=== PATIENT | male | born 1970 | race Caucasian/White ===

== ENCOUNTER 2018-06-09 16:01 | Observation (INO) ==
[2018-06-09] MEDS ORDERED: Aspirin 81 MG TAB.CHEW PO ONE (16:17)
[2018-06-09 16:34] LABS: Basophils # 0.1 K/mcL (0.0-0.2); Eosinophils # 0.3 K/mcL (0.0-0.6); Eosinophils % 4.7 %; Hematocrit 44.8 % (37.5-50.1); Hemoglobin 15.4 g/dL (12.9-16.9); Immature Granulocytes % 0.2 % (0-4); Lymphocytes # 2.3 K/mcL (0.6-4.6); Lymphocytes % 38.1 %; Mean Corpuscular HGB Conc 34.4 g/dL (31.6-35.5); Mean Corpuscular Hemoglobin 33.9 pg (28.0-33.3); Mean Corpuscular Volume 98.7 fL (83.0-100.0); Mean Platelet Volume 11.6 fL (9.4-12.4); Monocytes # 0.8 K/mcL (0.0-1.3); Neutrophils # 2.5 K/mcL (1.6-8.9); Red Blood Count 4.54 M/mcL (4.19-5.50); Red Cell Distribution Width 11.2 % (11.5-14.5)
[2018-06-09 16:52] LABS: Platelet Count 41 K/mcL (140-400)
[2018-06-09 16:53] LABS: Platelet Estimate Marked Decrease (Normal)
--- NOTE | 2018-06-09 16:59 | Emergency Department Note ---
Disposition Clinical Impression: Chest pain Qualifiers: Chest pain type: unspecified Qualified Code(s): R07.9 - Chest pain, unspecified Disposition: Admitted As Inpatient Condition: Good Referrals: Darin Mendosa MD [Primary Care Provider] - Forms: ED Satisfaction Letter Time of Disposition: 19:19 General Adult HPI - General Chief complaint: ED Chest Pain Stated complaint: CP Time Seen by Provider: 06/09/18 16:02 Source: patient Mode of arrival: ambulatory Limitations: no limitations Nursing Notes Reviewed: Yes Vital Signs Reviewed: Yes - History of Present Illness HPI Narrative: Patient is a 48-year-old male with a past medical history of hypertension as well as one pack per day smoking presenting to the emergency room in for evaluation of chest pain has been going on for 3 days and worsening. Patient describes as an elephant sitting on his chest that is a 10/10. Associated with dyspnea as well as one episode of nausea. Denies any history of pain similar to this in the past. Pain Scale: 10 - Related Data Home Medications Medication Instructions Recorded Confirmed Lisinopril [Zestril] 5 mg PO QAM 01/25/15 02/26/18 Escitalopram [Lexapro] 10 mg PO DAILY 02/26/18 02/26/18 Omeprazole [PriLOSEC] 40 mg PO DAILY 02/26/18 02/26/18 Allergies Allergy/AdvReac Type Severity Reaction Status Date / Time No Known Allergies Allergy Verified 02/26/18 08:41 All systems ED: reviewed and negative except as stated. Review of Systems: As Per HPI Constitutional: Denies: fever, chills Cardiovascular: Reports: chest pain. Denies: palpitations, dyspnea on exertion, edema, syncope Respiratory: Reports: dyspnea. Denies: cough, wheezes, hemoptysis, sputum production Gastrointestinal: Reports: nausea. Denies: abdominal pain, vomiting, diarrhea Past Medical History - Past Medical History Attestation: Yes The following information was validated with the patient. Medical history: Reports: cirrhosis, GERD, hepatitis, hyperlipidemia, hypertension, other Surgical history: Reports: orthopedic, other Psychiatric history: Reports: anxiety, depression - Social History Smoking Status: Current every day smoker Smokeless Tobacco Status: No Alcohol use: Reports: heavy Drug use: Reports: none Physical Exam CONSTITUTIONAL: Well-appearing; well-nourished; A&O X 3, in no apparent distress HEAD: Normocephalic; atraumatic EYES: PERRL, no scleral icterus NOSE: The nose is normal in appearance without rhinorrhea NECK: No JVD or distended neck veins RESP: Normal chest excursion with respiration; breath sounds clear and equal bilaterally; no wheezes, rhonchi, or rales CARD: Regular rhythm, without murmurs, rub or gallop ABD: Non-distended; non-tender, soft, without rigidity, rebound or guarding,no pulsatile mass CHEST: No pain with palpation SKIN: Normal for age and race; warm and dry without diaphoresis ; no apparent lesions EXTREMITIES: Pulses are 2 plus and equal times 4 extremities, no peripheral edema or calf muscle pain - General General appearance: alert Course Course Narrative: Patient was even a full dose of aspirin as well as dose of nitroglycerin. He will be worked up for his chest pain. Patient has a moderate heart score and will be coming into the hospital regardless of results of labs and imaging. - Reevaluation(s) Reevaluation #1: Patient's labs are unremarkable and his troponin was negative. Chest x-ray was negative as well. I discussed the patient's case with the hospitalist on-call and he agreed to accept the patient. Time: 19:15 Vital Signs Temperature 98.1 F 06/09/18 16:09 Pulse Rate 48 06/09/18 16:09 Respiratory Rate 17 06/09/18 16:09 Blood Pressure 168/99 06/09/18 16:09 O2 Sat by Pulse Oximetry 99 06/09/18 16:09 Temperature 98.1 F 06/09/18 16:24 Pulse Rate 60 06/09/18 18:10 Respiratory Rate 14 06/09/18 18:10 Blood Pressure 137/96 06/09/18 18:10 O2 Sat by Pulse Oximetry 96 06/09/18 18:10 Oxygen Delivery Oxygen Delivery Room Air Medical Decision Making - Medical Records Medical records reviewed: Yes I reviewed the patient's medical records. - Lab Data Lab results reviewed: Yes I reviewed the patient's lab results. Result diagrams: 06/09/18 16:08 06/09/18 17:25 Lab Results 06/09/18 06/09/18 06/09/18 Range/Units 16:08 16:08 16:57 WBC 6.0 (4.3-11.1) K/mcL RBC 4.54 (4.19-5.50) M/mcL Hgb 15.4 (12.9-16.9) g/dL Hct 44.8 (37.5-50.1) % MCV 98.7 (83.0-100.0) fL MCH 33.9 H (28.0-33.3) pg MCHC 34.4 (31.6-35.5) g/dL RDW 11.2 L (11.5-14.5) % Plt Count 41 L (140-400) K/mcL MPV 11.6 (9.4-12.4) fL Immature Gran % 0.2 (0-4) % Seg Neutrophils % 42.0 % Lymphocytes % 38.1 % Monocytes % 13.0 % Eosinophils % 4.7 % Basophils % 2.0 % Neutrophils # 2.5 (1.6-8.9) K/mcL Lymphocytes # 2.3 (0.6-4.6) K/mcL Monocytes # 0.8 (0.0-1.3) K/mcL Eosinophils # 0.3 (0.0-0.6) K/mcL Basophils # 0.1 (0.0-0.2) K/mcL Platelet Estimate Marked Decrease L (Normal) Sodium Cancelled Potassium Cancelled Chloride Cancelled Carbon Dioxide Cancelled BUN Cancelled Creatinine Cancelled Est GFR ( Amer) Cancelled Est GFR (Non-Af Amer) Cancelled BUN/Creatinine Ratio Cancelled Glucose Cancelled Calculated Osmolality Cancelled Calcium Cancelled Troponin I < 0.03 (< 0.04) ng/mL Specimen Rejected Hemolyzed 06/09/18 Range/Units 17:25 WBC (4.3-11.1) K/mcL RBC (4.19-5.50) M/mcL Hgb (12.9-16.9) g/dL Hct (37.5-50.1) % MCV (83.0-100.0) fL MCH (28.0-33.3) pg MCHC (31.6-35.5) g/dL RDW (11.5-14.5) % Plt Count (140-400) K/mcL MPV (9.4-12.4) fL Immature Gran % (0-4) % Seg Neutrophils % % Lymphocytes % % Monocytes % % Eosinophils % % Basophils % % Neutrophils # (1.6-8.9) K/mcL Lymphocytes # (0.6-4.6) K/mcL Monocytes # (0.0-1.3) K/mcL Eosinophils # (0.0-0.6) K/mcL Basophils # (0.0-0.2) K/mcL Platelet Estimate (Normal) Sodium 138 Potassium 5.1 Chloride 105 Carbon Dioxide 27 BUN 7 Creatinine 0.84 Est GFR ( Amer) > 60 Est GFR (Non-Af Amer) > 60 BUN/Creatinine Ratio 8 Glucose 114 H Calculated Osmolality 285 Calcium 9.8 Troponin I (< 0.04) ng/mL Specimen Rejected - Radiology Data Radiology results reviewed: Yes I reviewed the patient's radiology results. Chest X-Ray 06/09/18 16:17 IMPRESSION: Normal chest x-ray D/ / Tye Bolanos MD / Tye Bolanos MD Interpreting Provider: Tye Bolanos MD - EKG Data EKG #1 EKG attestation: Yes I reviewed and interpreted this EKG. EKG results narrative: EKG done at 16:08 shows sinus rhythm at a rate of 52 bpm. Normal [place]. No signs of ST elevation, depression or q-waves. The sinus bradycardia is new compared to prior ecg on 11/29/17
[2018-06-09] MEDS: Nitroglycerin 0.4 MG TAB.SUBL SL PRN ×2 (17:36→18:34)
[2018-06-09 17:54] LABS: BUN/Creatinine Ratio 8 (6-26); Blood Urea Nitrogen 7 mg/dL (6-20); Calcium 9.8 mg/dL (8.6-10.3); Carbon Dioxide 27 mEq/L (23-29); Chloride 105 mEq/L (98-107); Glucose 114 mg/dL (70-105); Osmolality,Calculated 285 (280-300); Potassium 5.1 mEq/L (3.5-5.1); Sodium 138 mEq/L (136-145); eGFR For Non-African Americans > 60 (> 60)
[2018-06-09] MEDS ORDERED: *HR* Morphine 2 MG/ML SYRINGE IVP ONE ×2 (18:31→21:08)
--- NOTE | 2018-06-09 18:34 | Emergency Department Note ---
Disposition Clinical Impression: Chest pain Qualifiers: Chest pain type: unspecified Qualified Code(s): R07.9 - Chest pain, unspecified Disposition: Admitted As Inpatient Condition: Good Referrals: Darin Mendosa MD [Primary Care Provider] - Forms: ED Satisfaction Letter General Adult HPI - General Chief complaint: ED Chest Pain Stated complaint: CP Time Seen by Provider: 06/09/18 16:02 Source: patient Mode of arrival: ambulatory Limitations: no limitations - History of Present Illness Pain Scale: 4 - Related Data Home Medications Medication Instructions Recorded Confirmed Lisinopril [Zestril] 5 mg PO QAM 01/25/15 02/26/18 Escitalopram [Lexapro] 10 mg PO DAILY 02/26/18 02/26/18 Omeprazole [PriLOSEC] 40 mg PO DAILY 02/26/18 02/26/18 Allergies Allergy/AdvReac Type Severity Reaction Status Date / Time No Known Allergies Allergy Verified 02/26/18 08:41 Constitutional: Denies: fever, chills Cardiovascular: Reports: chest pain. Denies: palpitations, dyspnea on exertion, edema, syncope Respiratory: Reports: dyspnea. Denies: cough, wheezes, hemoptysis, sputum production Gastrointestinal: Reports: nausea. Denies: abdominal pain, vomiting, diarrhea Past Medical History - Past Medical History Medical history: Reports: cirrhosis, GERD, hepatitis, hyperlipidemia, hypertension, other Surgical history: Reports: orthopedic, other Psychiatric history: Reports: anxiety, depression - Social History Smoking Status: Current every day smoker Smokeless Tobacco Status: No Alcohol use: Reports: heavy Drug use: Reports: none Physical Exam - General Limitations: no limitations General appearance: alert Course Vital Signs Temperature 98.1 F 06/09/18 16:09 Pulse Rate 48 06/09/18 16:09 Respiratory Rate 17 06/09/18 16:09 Blood Pressure 168/99 06/09/18 16:09 O2 Sat by Pulse Oximetry 99 06/09/18 16:09 Temperature 98.1 F 06/09/18 16:24 Pulse Rate 60 06/09/18 18:10 Respiratory Rate 14 06/09/18 18:10 Blood Pressure 137/96 06/09/18 18:10 O2 Sat by Pulse Oximetry 96 06/09/18 18:10 Oxygen Delivery Oxygen Delivery Room Air Medical Decision Making - Lab Data Result diagrams: 06/09/18 16:08 01/06/19 17:25 Lab Results 06/09/18 06/09/18 06/09/18 Range/Units 16:08 16:08 16:57 WBC 6.0 (4.3-11.1) K/mcL RBC 4.54 (4.19-5.50) M/mcL Hgb 15.4 (12.9-16.9) g/dL Hct 44.8 (37.5-50.1) % MCV 98.7 (83.0-100.0) fL MCH 33.9 H (28.0-33.3) pg MCHC 34.4 (31.6-35.5) g/dL RDW 11.2 L (11.5-14.5) % Plt Count 41 L (140-400) K/mcL MPV 11.6 (9.4-12.4) fL Immature Gran % 0.2 (0-4) % Seg Neutrophils % 42.0 % Lymphocytes % 38.1 % Monocytes % 13.0 % Eosinophils % 4.7 % Basophils % 2.0 % Neutrophils # 2.5 (1.6-8.9) K/mcL Lymphocytes # 2.3 (0.6-4.6) K/mcL Monocytes # 0.8 (0.0-1.3) K/mcL Eosinophils # 0.3 (0.0-0.6) K/mcL Basophils # 0.1 (0.0-0.2) K/mcL Platelet Estimate Marked Decrease L (Normal) Sodium Cancelled Potassium Cancelled Chloride Cancelled Carbon Dioxide Cancelled BUN Cancelled Creatinine Cancelled Est GFR ( Amer) Cancelled Est GFR (Non-Af Amer) Cancelled BUN/Creatinine Ratio Cancelled Glucose Cancelled Calculated Osmolality Cancelled Calcium Cancelled Troponin I < 0.03 (< 0.04) ng/mL Specimen Rejected Hemolyzed 06/09/18 Range/Units 17:25 WBC (4.3-11.1) K/mcL RBC (4.19-5.50) M/mcL Hgb (12.9-16.9) g/dL Hct (37.5-50.1) % MCV (83.0-100.0) fL MCH (28.0-33.3) pg MCHC (31.6-35.5) g/dL RDW (11.5-14.5) % Plt Count (140-400) K/mcL MPV (9.4-12.4) fL Immature Gran % (0-4) % Seg Neutrophils % % Lymphocytes % % Monocytes % % Eosinophils % % Basophils % % Neutrophils # (1.6-8.9) K/mcL Lymphocytes # (0.6-4.6) K/mcL Monocytes # (0.0-1.3) K/mcL Eosinophils # (0.0-0.6) K/mcL Basophils # (0.0-0.2) K/mcL Platelet Estimate (Normal) Sodium 138 Potassium 5.1 Chloride 105 Carbon Dioxide 27 BUN 7 Creatinine 0.84 Est GFR ( Amer) > 60 Est GFR (Non-Af Amer) > 60 BUN/Creatinine Ratio 8 Glucose 114 H Calculated Osmolality 285 Calcium 9.8 Troponin I (< 0.04) ng/mL Specimen Rejected Attestation Statement - Attestation Attestation: I examined this patient and my medical decision-making was reviewed with the Resident Physician. I agree with the documented findings, disposition and treatment plan as described except to the extent set forth below. 48 year old male presents to the ED with complaints of chest pain and appaers to be very suspicios for ACS. Juan Jose chest pain has improved with nitro therpay although it has returned and we will try to resolve with morphine. Juan Jose has agreed to admission andhas a negative troponin and no new ischemic changes on ekg today.
[2018-06-09] MEDS ORDERED: Naloxone 0.4 MG/ML INJ IVP PRN (20:27)
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
[2018-06-09] MEDS ORDERED: Isovue-370 500 ML INFUS..BTL IV ONE (21:58)
[2018-06-09] MEDS: traMADol 50 MG TABLET PO PRN (22:15)
[2018-06-09] MEDS ORDERED: methylPREDNISolone 125 MG/2 ML VIAL IVP ONE (23:47)
[2018-06-10] MEDS: Ipratropium/Albuterol Neb 3 ML IH PRN ×2 (00:01→11:33)
[2018-06-10] MEDS: Ondansetron 4 MG/2 ML VIAL IVP PRN ×2 (02:04→20:02)
[2018-06-10] MEDS: traMADol 50 MG TABLET PO PRN ×4 (03:34→20:02)
[2018-06-10] MEDS ORDERED: Acetaminophen 325 MG TABLET PO PRN (04:35)
[2018-06-10 05:25] LABS: Hematocrit 43.8 % (37.5-50.1); Hemoglobin 15.3 g/dL (12.9-16.9); Lymphocytes # 0.5 K/mcL (0.6-4.6); Mean Corpuscular HGB Conc 34.9 g/dL (31.6-35.5); Mean Corpuscular Hemoglobin 33.7 pg (28.0-33.3); Mean Corpuscular Volume 96.5 fL (83.0-100.0); Red Blood Count 4.54 M/mcL (4.19-5.50); Red Cell Distribution Width 11.1 % (11.5-14.5)
[2018-06-10 05:26] LABS: Platelet Count 37 K/mcL (140-400)
[2018-06-10 05:34] LABS: INR 1.4; Prothrombin Time 15.3 Seconds (9.4-12.1)
[2018-06-10 05:45] LABS: Neutrophils # 5.2 K/mcL (1.6-8.9); Platelet Estimate Decreased (Normal); Troponin I < 0.03 ng/mL (< 0.04)
[2018-06-10 05:47] LABS: Alanine Aminotransferase 52 Units/L (7-52); Albumin 4.1 g/dL (3.5-5.7); Albumin/Globulin Ratio 0.9 (1.1-2.2); Alkaline Phosphatase 102 Units/L (34-104); Aspartate Amino Transferase 106 Units/L (13-39); BUN/Creatinine Ratio 15 (6-26); Bilirubin,Total 1.5 mg/dL (0.3-1.0); Blood Urea Nitrogen 10 mg/dL (6-20); Calcium 9.7 mg/dL (8.6-10.3); Carbon Dioxide 21 mEq/L (23-29); Chloride 103 mEq/L (98-107); Chol/HDL Ratio 2.6 (0-4.9); Cholesterol 158 mg/dL (< 200); Globulin 4.6 g/dL (2.4-3.5); Glucose 114 mg/dL (70-105); HDL Cholesterol 60 mg/dL (40-59); LDL Cholesterol,Calculated 89 mg/dL (0-99); Magnesium 1.6 mg/dL (1.6-2.6); Osmolality,Calculated 280 (280-300); Potassium 4.4 mEq/L (3.5-5.1); Sodium 135 mEq/L (136-145); Total Protein 8.7 g/dL (6.4-8.9); Triglycerides 45 mg/dL (< 150); eGFR For Non-African Americans > 60 (> 60)
[2018-06-10 05:58] LABS: Thyroid Stimulating Hormone 0.766 mcIU/mL (0.340-5.600)
[2018-06-10] MEDS ORDERED: *HR* Heparin 5,000 UNIT/ML VIAL SQ SCH (06:00)
--- NOTE | 2018-06-10 10:19 | Cardiology Consult Note ---
<Sherly Chavez - Last Filed: 06/10/18 10:15> Date of Encounter: 06/10/18 Time of Encounter: 10:00 Assessment and Plan (1) Chest pain Current Visit: Yes Status: Acute Patient presents with atypical chest pain symptoms--reproducible upon exam. Likely musculoskeletal in etiology. Troponin negative x3. No ST/T wave abnormalities noted on ECG. Recommend conservative medical therapy given hx of severe liver dysfunction with thrombocytopenia, PLT 37. Further cardiac testing would be contraindicated at this time. No asa or statin. It does not appear HR will tolerate BB. Echo pending, please call with significant abnormality. Continue further work-up for hematemesis--discussed with primary service. Qualifiers: Chest pain type: chest pain on breathing Qualified Code(s): R07.1 - Chest pain on breathing; R07.81 - Pleurodynia (2) Alcohol abuse Current Visit: Yes Status: Acute Chronic, reports started at age 14. Follows with GI as outpatient, has EGD scheduled for 06/12/18. Reports multiple episodes of hematemesis this AM--discussed with primary service who will further evaluate. (3) Thrombocytopenia Current Visit: Yes Status: Acute Appears to be chronic, secondary to liver cirrhosis. Hx of heavy ETOH (has cut back to 3-4 beers/day) and hep C--undergoing treatment. Proceeding with cardiac intervention (stress, LHC) would be contraindicated at this time due to severe thrombocytopenia, PLT 37. Continue conservative medication therapy. Avoid statin/asa. (4) Sinus bradycardia Current Visit: Yes Status: Acute Patient appears to have baseline sinus bradycardia--asymptomatic. Avg HR=59 SR/SB. No significant pause, block, or arrhythmia noted. Avoid AV maribel blocking agents. No further cardiac testing recommended at this time. Discussion w patient/family: The assessment and plan as outlined above was discussed with the patient and/or family members who expressed understanding and agreement. All questions were answered. Thank you for involving us in the care of your patient. Please call with any questions. The patient will be discussed and reviewed with Dr. Matos; changes to be made accordingly. History of Present Illness Consult date: 06/10/18 Requesting physician: Arlet Kwok Consult reason: Chest pain Chief complaint: Chest pain History of present illness: Mr. Sow is a 48 year old male with PMHx significant of heavy/chronic ETOH abuse, hepatitis C, thrombocytopenia, tobacco use, and HTN who presented to the ED with complaints of midsternal chest pain. He reports that discomfort started over the past few days and has been nearly constant. Associated symptoms include fatigue, poor appetite, and hematemesis. Chest pain is worsened with movement and cough. Chest pain is noted to be reproducible upon exam. Reports he manually pushed a vehicle a fair distance in order to change out a battery, since pushing the car, chest pain has continued to worsen. Patient follows with GI d/t liver dysfunction and thrombocytopenia/hepatitis C. He unfortunately continues to drink, but reports he has cut down to 3-4 beers per day. 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 Past Med Surg Social Fam HX - Past Medical History Attestation: Yes The following information was validated with the patient. Source: patient Medical history: cirrhosis, GERD, hepatitis, hyperlipidemia, hypertension, other Additional medical history: headaches Psychiatric history: anxiety, depression - Past Surgical History Surgical History: orthopedic, other Additional surgical history: ankles 2000 - Social History Smoking Status: Current every day smoker Packs per day: 0.5-1 Smokeless Tobacco Status: No Alcohol use: heavy Drug use: none - Family History Grandfather Hx Family Cardiac Disorders: Yes (DC) Mother Family Member Ethnicity: Non- Living Status: Still Living Hx Family Cardiac Disorders: No Hx Family Respiratory Disorders: No Hx Family Cancer: Yes Hx Family GI Disorders: No Hx Family Endocrine Disorder: No Hx Family Neuromuscular Disorders: No Hx Family Neurologic Disorders: No Hx Family HEENT Disorders: No Hx Family Autoimmune Disorders: No Father Living Status: Still Living Medications and Allergies Escitalopram [Lexapro] 5 mg PO DAILY 02/26/18 [History] Omeprazole [PriLOSEC] 40 mg PO DAILY 02/26/18 [History] Cyanocobalamin (Vitamin B-12) [Vitamin B12] 1,000 mcg PO DAILY 06/10/18 [History] Meloxicam 15 mg PO DAILY PRN 06/10/18 [History] Nadolol 20 mg PO DAILY 06/10/18 [History] Rifaximin [Xifaxan] 550 mg PO BID 06/10/18 [History] Thiamine HCl [Vitamin B-1] 100 mg PO DAILY 06/10/18 [History] Tizanidine HCl 2 mg PO DAILY 06/10/18 [History] Allergy/AdvReac Type Severity Reaction Status Date / Time No Known Allergies Allergy Verified 06/10/18 14:23 All Systems Review: The remainder of the systems were reviewed and are negative - Cardiovascular Cardiovascular: as per HPI Physical Examination Vital Signs, Last 4 Hours Temp Pulse Resp BP Pulse Ox 06/10/18 08:19 97 06/10/18 07:55 98.9 F 57 18 161/90 97 General: Conversant, No Apparent Distress HEENT: Normocephaly, Mucus Membranes Moist, Other (healing brittni-orbital (L>R) ecchymosis) Cardiac: Reg Rate and Rhythm, Normal S1 and S2 Lungs: Other (Expiratory wheezes noted throughout) Neuro: Alert and responsive Abdomen: Soft Skin: No rashes noted on visualized skin Musculoskeletal: No Chest Wall Tenderness Extremities: No Edema, Normal Pulses Results 06/10/18 04:19 06/10/18 04:19 Lab Results 06/09/18 06/09/18 06/09/18 16:08 16:08 17:25 WBC 6.0 Hgb 15.4 Hct 44.8 Plt Count 41 L INR Sodium Cancelled 138 Potassium Cancelled 5.1 Chloride Cancelled 105 Carbon Dioxide Cancelled 27 BUN Cancelled 7 Creatinine Cancelled 0.84 Glucose Cancelled 114 H Calcium Cancelled 9.8 Magnesium Total Bilirubin AST ALT Alkaline Phosphatase Troponin I < 0.03 TSH 06/09/18 06/10/18 06/10/18 21:52 04:19 04:19 WBC 5.6 Hgb 15.3 Hct 43.8 Plt Count 37 L INR 1.4 Sodium Potassium Chloride Carbon Dioxide BUN Creatinine Glucose Calcium Magnesium Total Bilirubin AST ALT Alkaline Phosphatase Troponin I < 0.03 TSH 06/10/18 04:19 WBC Hgb Hct Plt Count INR Sodium 135 L Potassium 4.4 Chloride 103 Carbon Dioxide 21 L BUN 10 Creatinine 0.65 L Glucose 114 H Calcium 9.7 Magnesium 1.6 Total Bilirubin 1.5 H AST 106 H ALT 52 Alkaline Phosphatase 102 Troponin I < 0.03 TSH 0.766 Active Medications Acetaminophen (Tylenol) 650 mg PO Q6H PRN PRN Reason: Fever Stop: 12/10/18 04:36 Albuterol/Ipratropium (Duoneb) 3 ml IH [id number] PRN PRN Reason: Shortness Of Breath/Wheezing Stop: 12/09/18 23:49 Last Admin: 06/10/18 00:01 Dose: 3 ml Heparin Sodium (Porcine) (Heparin) 5,000 unit SQ Q8HCO KRISTI Stop: 12/10/18 06:01 Last Admin: 06/10/18 05:14 Dose: Not Given Lisinopril (Zestril) 5 mg PO QAM KRISTI; Protocol Stop: 12/09/18 21:31 Last Admin: 06/10/18 08:11 Dose: 5 mg Naloxone HCl (Narcan) 0.4 mg IVP Q2MIN PRN PRN Reason: SEE COMMENTS Stop: 12/09/18 20:28 Nitroglycerin (Nitroglycerin) 0.4 mg SL Q5MIN PRN PRN Reason: Chest Pain Stop: 12/09/18 17:00 Last Admin: 06/09/18 18:34 Dose: 0.4 mg Ondansetron HCl (Zofran) 4 mg IVP Q8HR PRN; Protocol PRN Reason: Nausea And Vomiting Stop: 12/10/18 01:54 Last Admin: 06/10/18 02:04 Dose: 4 mg Tramadol HCl (Ultram) 50 mg PO Q4H PRN PRN Reason: Analgesia Stop: 12/09/18 22:00 Last Admin: 06/10/18 08:11 Dose: 50 mg - Imaging and Cardiology Echo: pending Other Results: 12 hour tele: avg HR=59 SR - EKG Interpretation EKG results cardiology: personally reviewed Consult Discharge Plan - Plan Referrals: Darin Mendosa MD [Primary Care Provider] - <Luis Matos A - Last Filed: 06/10/18 16:51> Date of Encounter: 06/10/18 - Attending Attestation I have personally performed a face to face evaluation on this patient. I have reviewed and agree with the documented findings and care plan as documented by the FURNACE CHARGING MACHINE OPERATOR. History and Exam by me shows: 48-year-old male with chronic liver disease and thrombocytopenia, presenting with atypical chest pain. Examination reveals reproducible midsternal chest pain. Recommend supportive care. Patient counseled on smoking and alcohol cessation in order to improve his platelet counts. Thanks, Luis Matos MD Assessment and Plan Discussion w patient/family: The assessment and plan as outlined above was discussed with the patient and/or family members who expressed understanding and agreement. All questions were answered. Thank you for involving us in the care of your patient. Please call with any questions. History of Present Illness History of present illness: Mr. Sow is a 48 year old male All Systems Review: The remainder of the systems were reviewed and are negative Physical Examination Vital Signs, Last 4 Hours Temp Pulse Resp BP Pulse Ox 06/10/18 15:15 51 14 156/81 96 06/10/18 14:45 69 14 132/73 97 06/10/18 14:15 70 14 151/77 98 06/10/18 13:13 98.3 F 55 16 144/90 96 Results 06/10/18 12:41 06/10/18 04:19 Lab Results 06/09/18 06/09/18 06/09/18 16:08 16:08 17:25 WBC 6.0 Hgb 15.4 Hct 44.8 Plt Count 41 L INR Sodium Cancelled 138 Potassium Cancelled 5.1 Chloride Cancelled 105 Carbon Dioxide Cancelled 27 BUN Cancelled 7 Creatinine Cancelled 0.84 Glucose Cancelled 114 H Calcium Cancelled 9.8 Magnesium Total Bilirubin AST ALT Alkaline Phosphatase Troponin I < 0.03 TSH 06/09/18 06/10/18 06/10/18 21:52 04:19 04:19 WBC 5.6 Hgb 15.3 Hct 43.8 Plt Count 37 L INR 1.4 Sodium Potassium Chloride Carbon Dioxide BUN Creatinine Glucose Calcium Magnesium Total Bilirubin AST ALT Alkaline Phosphatase Troponin I < 0.03 TSH 06/10/18 06/10/18 04:19 12:41 WBC Hgb 14.7 Hct 42.7 Plt Count INR Sodium 135 L Potassium 4.4 Chloride 103 Carbon Dioxide 21 L BUN 10 Creatinine 0.65 L Glucose 114 H Calcium 9.7 Magnesium 1.6 Total Bilirubin 1.5 H AST 106 H ALT 52 Alkaline Phosphatase 102 Troponin I < 0.03 TSH 0.766
[2018-06-10 11:52] LABS: Amphetamine Screen,Urine Negative ng/mL (Cutoff=1000); Barbiturate Screen,Urine Negative ng/mL (Cutoff=200); Benzodiazepines Screen,Urine Negative ng/mL (Cutoff=200); Cannabinoid Screen,Urine Negative ng/mL (Cutoff = 50); Cocaine Screen,Urine Negative ng/mL (Cutoff= 300); Opiate Screen,Urine Positive ng/mL (Cutoff=300); Phencyclidine Screen,Urine Negative ng/mL (Cutoff=25)
[2018-06-10] MEDS: Pantoprazole 40 MG VIAL IVP SCH ×2 (12:27→17:43)
[2018-06-10 13:14] LABS: Hematocrit 42.7 % (37.5-50.1); Hemoglobin 14.7 g/dL (12.9-16.9)
[2018-06-10] MEDS: 0.9 % Sodium Chloride 1,000 ML IVC SCH (13:19)
--- NOTE | 2018-06-10 13:33 | Anesthesia Evaluation PreOp ---
Date of Encounter: 06/10/18 Time of Encounter: 13:31 - Past History Planned Operation: EGD Cardiac History: Denies any Significant Hx (egd Cardiac History: HTN Pulmonary History: Smoker, Asthma Other Medical History: Hepatic (hep c), GERD Anesthesia History: No Prior Anesthetic Complications Alcohol Use: heavy Drug use: none), HTN Pulmonary History: Smoker, Asthma BRAZER ELECTRONIC History: Denies Any Significant HX Other Medical History: Denies Any Significant HX, Hepatic (Hep C) Anesthesia History: No Prior Anesthetic Complications, Past Anesthesia (EGD) Alcohol Use: heavy Drug use: none Medications and Allergies RX: Lisinopril [Zestril] 5 mg PO QAM 01/25/15 [History] Escitalopram [Lexapro] 10 mg PO DAILY 02/26/18 [History] Omeprazole [PriLOSEC] 40 mg PO DAILY 02/26/18 [History] Allergy/AdvReac Type Severity Reaction Status Date / Time No Known Allergies Allergy Verified 02/26/18 08:41 - Meds/Allergy Pre-op Review Medications Reviewed: Yes Allergies Reviewed: Yes Beta Blockers on Current Med List: No Anesthesia Results - Labs 06/10/18 12:41 06/10/18 04:19 Anesthesia Exam Vital Signs/O2 Sat, Most Current Temp Pulse Resp BP Pulse Ox 98.3 F 55 16 144/90 96 06/10/18 13:13 06/10/18 13:13 06/10/18 13:13 06/10/18 13:13 06/10/18 13:13 NPO (# of Hours): > 8 Hrs Pain Scale: 0 Pain Scale Used: Numeric (1 - 10) - HEENT Pupil (Motor): Pupils equal, EOMI Mallampati: I Teeth: Normal Oral Opening: Greater than 3 - BRAZER ELECTRONIC LOC: Oriented BRAZER ELECTRONIC Motor: Normal RUE, Normal LUE, Normal RLE, Normal LLE, Normal Face BRAZER ELECTRONIC Sensory: Normal: RUE, LUE, RLE, LLE, Face - Cardiac Rhythm: Regular Murmur: None JVD: No Carotid Bruit: No - Pulmonary Breath Sounds: bilateral Clear Respiratory Effort: Symmetrical Anesthesia Assess/Plan ASA Score: 3 Level of consciousness: Cooperative Anesthetic Plan: MAC Autologous Blood: Yes Monitoring Plan: Standard Monitors Recovery Plan: PACU
[2018-06-10] MEDS ORDERED: Tetracaine/Benzocaine/Butamben 1 SPRAY AEROSOL MM ONE (13:43)
[2018-06-10] MEDS ORDERED: *HR* Propofol 200 MG/20 ML VIAL IVP ONE ×2 (13:50→13:53)
--- NOTE | 2018-06-10 13:52 | Gastroenterology Consult Note ---
<Amanda Simms - Last Filed: 06/10/18 13:50> Date of Encounter: 06/10/18 Time of Encounter: 12:15 - Assessment and plan (1) Chest pain Current Visit: Yes Status: Acute Assessment and plan: Pt presents with chest pain. Troponins were negative. Will proceed with EGD to rule out GI cause of CP including esophagitis, and gastritis. (2) Alcohol abuse Current Visit: Yes Status: Acute Assessment and plan: Pt is being followed by Dr Loaiza for cirrhosis and hep C, he is advised to abstain from alcohol. (3) Thrombocytopenia Current Visit: Yes Status: Acute Assessment and plan: Likely due to cirrhosis, and alcohol abuse, will monitor. (4) Chest pain Current Visit: Yes Status: Acute Qualifiers: Chest pain type: chest pain on breathing Qualified Code(s): R07.1 - Chest pain on breathing; R07.81 - Pleurodynia (5) Cirrhosis of liver Current Visit: Yes Status: Acute Assessment and plan: followed by Dr Loaiza as an outpatient, Meld NA 14 Child bonilla Class A, DF 16.2 Qualifiers: Hepatic cirrhosis type: alcoholic cirrhosis - Time Spent With Patient Total time spent is greater than 50% in coordination of care (as documented) at patient's floor/unit and/or counseling patient: GI History of Present Illness - Data of Consult Patient: known to practice within the last 3 years Consult date: 06/10/18 Requesting Physician: Rizwana Leslie MD - Consult Narrative Reason for consult: hemetemesis History of present illness: Mr. Sow is a 48 year old male with a past medical history of hepatitis C, hypertension, alcohol use, anxiety and thrombocytopenia who presented to the ED with a chief complaint of chest pain. Patient states that he has been having constant chest pain for the past 3 days which is gotten progressively worse. He describes the chest pain as pressure-like, substernal, constant, and radiating to his spine. Pain is aggravated with deep inspiration and as such has been taking short shallow breaths. Patient also notes pain is worse when he sits up. Patient states that when he got off work this morning, he states the pain was unbearable. He contacted his daughter who works at a hospital who advised him to come in. Pain was reproducible with palpation of his anterior chest wall. Patient states that he was pushing his girlfriend's car out onto the street last Sunday and felt that he may have strained something. Patient reports no dizziness or lightheadedness. Patient reports an episode of nausea and vomiting this morning after having a beer; patient also reports some hemetemsis. He drinks 3-4 cans of beers a day after he gets off work and has been doing so since he was 14. Upon arrival patient was mildly hypertensive with systolic blood pressure in the 160s. He was noted to be slightly bradycardic in the 40s to 60s. Labs are relatively unremarkable. Negative troponin. EKG was relatively unremarkable. CTA was ordered which showed no evidence of PE or dissection. He was given a loading dose of aspirin and admitted to the floor. Meld NA 14 Child bonilla Class A, DF 16.2 NSAIDS: denies Anticoagulants: denies EGD: 06/19 gastritis Colonoscopy: denies Past Med Surg Social Fam HX - Past Medical History Medical history: cirrhosis, GERD, hepatitis, hyperlipidemia, hypertension, other Additional medical history: headaches Psychiatric history: anxiety, depression - Past Surgical History Surgical History: orthopedic, other Additional surgical history: ankles 2000 - Social History Smoking Status: Current every day smoker Packs per day: 0.5-1 Smokeless Tobacco Status: No Alcohol use: heavy Drug use: none - Family History Grandfather Hx Family Cardiac Disorders: Yes (ID) Mother Family Member Ethnicity: Non- Living Status: Still Living Hx Family Cardiac Disorders: No Hx Family Respiratory Disorders: No Hx Family Cancer: Yes Hx Family GI Disorders: No Hx Family Endocrine Disorder: No Hx Family Neuromuscular Disorders: No Hx Family Neurologic Disorders: No Hx Family HEENT Disorders: No Hx Family Autoimmune Disorders: No Father Living Status: Still Living Review of Systems: GI: as per CHITIMACHA GENERAL: denies fever, has some chills EYES: denies yellow discoloration ENT: denies pain with swallowing or difficulty swallowing CARDIO: see hpi RESP: Shortness of breath with exertion : denies change in color of urine NEURO: denies any weakness HEME: Denies any bruising MS: denies joint pain, joint swelling or back pain. DERM: denies rash or itching PSYCH: Denies history of anxiety or depression - Constitutional Vitals: Temp Pulse Resp BP Pulse Ox 98.3 F 55 16 144/90 96 06/10/18 13:13 06/10/18 13:13 06/10/18 13:13 06/10/18 13:13 06/10/18 13:13 Exam: CONSTITUTIONAL:alert, no acute distress.HEAD:normocephalic.EYES:mild jaundice.NECK:no obvious swelling.HEART:regular rate and rhythm, no murmurs.LUNGS:bilateral good air entry.ABDOMEN:non distended, soft, tender, no masses palpable, organomegaly.RECTAL EXAM:Deferred.EXTREMITIES:no clubbing, cyanosis or edema.SKIN:no stigmata of chronic liver disease.NEUROLOGIC:no obvious focal defect. Results - Labs CBC & Chem 7: 06/10/18 12:41 06/10/18 04:19 Labs: Last Result Calcium 9.7 mg/dL (8.6-10.3) 06/10/18 04:19 Troponin I < 0.03 ng/mL (< 0.04) 06/10/18 04:19 Triglycerides 45 mg/dL (< 150) 06/10/18 04:19 Urine Opiates Screen Positive ng/mL (Flaylu=007) H 06/10/18 11:23 Entire Visit Hgb 14.7 g/dL (12.9-16.9) 06/10/18 12:41 Hct 42.7 % (37.5-50.1) 06/10/18 12:41 PT 15.3 Seconds (9.4-12.1) H 06/10/18 04:19 Total Bilirubin 1.5 mg/dL (0.3-1.0) H 06/10/18 04:19 AST 106 Units/L (13-39) H 06/10/18 04:19 ALT 52 Units/L (7-52) 06/10/18 04:19 - ABG ABG results: PT/INR, D-dimer PT 15.3 Seconds (9.4-12.1) H 06/10/18 04:19 - Impressions Impressions Chest X-Ray 06/09/18 16:17 IMPRESSION: Normal chest x-ray D/ / Tye Bolanos MD / Tye Bolanos MD Interpreting Provider: Tye Bolanos MD Chest CTA 06/09/18 21:58 IMPRESSION: No evidence of pulmonary embolism or acute pulmonary abnormality. Mild paraseptal emphysema. Central airway inflammation is presumably smoking-related, although acute bronchitis could be present in the appropriate context. No consolidative airspace disease. Hepatic steatosis with suspected portosystemic collaterals, similar to prior exam. D/ / Emmanuel Elliott / Emmanuel Elliott Interpreting Provider: Emmanuel Elliott Consult Discharge Plan - Plan Referrals: Darin Mendosa MD [Primary Care Provider] - <Laura Oneil - Last Filed: 06/10/18 17:15> Date of Encounter: 06/10/18 Time of Encounter: 12:30 - Time Spent With Patient Total time spent is greater than 50% in coordination of care (as documented) at patient's floor/unit and/or counseling patient: GI History of Present Illness - Data of Consult Requesting Physician: Rizwana Leslie MD - Consult Narrative History of present illness: Mr. Sow is a 48 year old male - Constitutional Vitals: Temp Pulse Resp BP Pulse Ox 98.3 F 51 14 156/81 96 06/10/18 13:13 06/10/18 15:15 06/10/18 15:15 06/10/18 15:15 06/10/18 15:15 Results - Labs CBC & Chem 7: 06/10/18 12:41 06/10/18 04:19 Labs: Last Result Calcium 9.7 mg/dL (8.6-10.3) 06/10/18 04:19 Troponin I < 0.03 ng/mL (< 0.04) 06/10/18 04:19 Triglycerides 45 mg/dL (< 150) 06/10/18 04:19 Urine Opiates Screen Positive ng/mL (Sranti=322) H 06/10/18 11:23 Entire Visit Hgb 14.7 g/dL (12.9-16.9) 06/10/18 12:41 Hct 42.7 % (37.5-50.1) 06/10/18 12:41 PT 15.3 Seconds (9.4-12.1) H 06/10/18 04:19 Total Bilirubin 1.5 mg/dL (0.3-1.0) H 06/10/18 04:19 AST 106 Units/L (13-39) H 06/10/18 04:19 ALT 52 Units/L (7-52) 06/10/18 04:19 - ABG ABG results: PT/INR, D-dimer PT 15.3 Seconds (9.4-12.1) H 06/10/18 04:19 - Impressions Impressions Chest CTA 06/09/18 21:58 IMPRESSION: No evidence of pulmonary embolism or acute pulmonary abnormality. Mild paraseptal emphysema. Central airway inflammation is presumably smoking-related, although acute bronchitis could be present in the appropriate context. No consolidative airspace disease. Hepatic steatosis with suspected portosystemic collaterals, similar to prior exam. D/ / Emmanuel Elliott / Emmanuel Elliott Interpreting Provider: Emmanuel Elliott - Attending Attestation I have personally performed a face to face evaluation on this patient. I have reviewed and agree with the care plan. History and Exam by me shows: Patient seen patient with alcoholic cirrhosis now admitted because of hematemesis. He is complaining of lower chest pain. On examination does has l ower chest wall tenderness on palpation and abdomen is soft. Assessment: Patient with alcoholic cirrhosis with the meld sodium score of 14 and the DF of only 16, janette has severe thrombocytopenia. Recommendation: EGD to rule out upper GI causes for his hematemesis. Strongly advised against drinking
[2018-06-10] MEDS ORDERED: *HR* LORazepam 2 MG/ML VIAL IVP PRN ×4 (14:43→15:16)
[2018-06-10 14:45] LABS: Estimated Average Glucose 103 mg/dl; Hemoglobin A1C 5.2 %
--- NOTE | 2018-06-10 14:47 | Internal Med Progress Note ---
Hospitalist Progress Note - Encounter Date of Encounter: 06/10/18 Time of Encounter: 14:41 - Subjective Interval History: Mr. Sow is a 48 year old male with a past medical history of hepatitis C, hypertension, alcohol use, anxiety and thrombocytopenia who presented to the ED with a chief complaint of chest pain and hematemesis. He did have reproducible chest wall tenderness which is better now. He did have an episode of hemetemesis here. He went for EGD this morning which showed non bleeding varices and gastric ulcer. - Exam Vitals: Temp Pulse Resp BP Pulse Ox 98.3 F 70 14 151/77 98 06/10/18 13:13 06/10/18 14:15 06/10/18 14:15 06/10/18 14:15 06/10/18 14:15 Exam: Gen: Alert, awake, Oriented to time,place and person Chest: Diminished breath sounds B/L, No wheezing, No crackles, No rales Heart: S1S2+ RRR No murmurs Abd: Soft, NT, BS +, No organomegaly Ext: No edema, pulses are palpable, No calf tenderness Neuro : Benign findings Skin: No rash. - Assessment and Plan (1) Chest pain Current Visit: Yes Status: Acute Assessment and Plan: atypical chest pain most likely musculo skeletal no acute ischemic changes on EKG serial troponin were negative will follow-up on Echo (2) Thrombocytopenia Current Visit: Yes Status: Acute Assessment and Plan: Chronic thrombocytopenia due to alcohol induced cirrhosis of the liver continue close monitoring.. today @ 37 avoid anticoagulation medication (3) Sinus bradycardia Current Visit: Yes Status: Acute Assessment and Plan: improved symptomatic 2 D Echo - p appreciate cardiology recommendations (4) Hematemesis Current Visit: Yes Status: Acute Assessment and Plan: s/p EGD showed garde 1 esophageal varices and portal gatsropathy full liquid diet PPI BID + Carafate out pt f/u with GI (5) Alcohol dependence Current Visit: Yes Status: Acute Assessment and Plan: last alcohol 5 days ago on CIWA protocol Ativan PRN Thiamine and folic acid (6) DVT prophylaxis Current Visit: Yes Status: Acute Assessment and Plan: SCD's only - Time Spent with Patient Total time spent is greater than 50% in coordination of care (as documented) at patient's floor/unit and/or counseling patient: Internal Medicine: Result - Labs CBC & Chem 7: 06/10/18 12:41 06/10/18 04:19 Labs: Short CBC 06/09/18 06/10/18 06/10/18 Range/Units 16:08 04:19 12:41 WBC 6.0 5.6 (4.3-11.1) K/mcL Hgb 15.4 15.3 14.7 (12.9-16.9) g/dL Hct 44.8 43.8 42.7 (37.5-50.1) % Plt Count 41 L 37 L (140-400) K/mcL Neutrophils # 2.5 5.2 (1.6-8.9) K/mcL BMP 06/09/18 06/09/18 06/10/18 16:08 17:25 04:19 Sodium Cancelled 138 135 L Potassium Cancelled 5.1 4.4 Chloride Cancelled 105 103 Carbon Dioxide Cancelled 27 21 L BUN Cancelled 7 10 Creatinine Cancelled 0.84 0.65 L Glucose Cancelled 114 H 114 H Calcium Cancelled 9.8 9.7 Cardiac Enzymes 06/09/18 06/09/18 06/10/18 Range/Units 16:08 21:52 04:19 Troponin I < 0.03 < 0.03 < 0.03 (< 0.04) ng/mL Liver Function 06/10/18 Range/Units 04:19 Total Bilirubin 1.5 H (0.3-1.0) mg/dL AST 106 H (13-39) Units/L ALT 52 (7-52) Units/L Alkaline Phosphatase 102 (34-104) Units/L Albumin 4.1 (3.5-5.7) g/dL - ABG Interpretation ABG results: PT/INR, D-dimer PT 15.3 Seconds (9.4-12.1) H 06/10/18 04:19 - Impressions Impressions Chest X-Ray 06/09/18 16:17 IMPRESSION: Normal chest x-ray D/ / Tye Bolanos MD / Tye Bolanos MD Interpreting Provider: Tye Bolanos MD Chest CTA 06/09/18 21:58 IMPRESSION: No evidence of pulmonary embolism or acute pulmonary abnormality. Mild paraseptal emphysema. Central airway inflammation is presumably smoking-related, although acute bronchitis could be present in the appropriate context. No consolidative airspace disease. Hepatic steatosis with suspected portosystemic collaterals, similar to prior exam. D/ / Emmanuel Elliott / Emmanuel Elliott Interpreting Provider: Emmanuel Elliott Consult Discharge Plan - Plan Referrals: Darin Mendosa MD [Primary Care Provider] - (1) Chest pain Qualifiers: Chest pain type: chest pain on breathing Qualified Code(s): R07.1 - Chest pain on breathing; R07.81 - Pleurodynia
--- NOTE | 2018-06-10 15:10 | Event Note ---
Date of Encounter: 06/10/18 Time of Encounter: 15:10 - Cardiology Event Note Echo pending, discussed with Dr. Matos, cardiology signoff, reconsult as needed, follow up with PCP. Please call with any concerns on echo.
--- NOTE | 2018-06-10 15:13 | Electrocardiograph Report ---
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
--- NOTE | 2018-06-10 15:19 | Electrocardiograph Report ---
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
[2018-06-11] MEDS: Pantoprazole 40 MG VIAL IVP SCH (05:51)
[2018-06-11] MEDS: traMADol 50 MG TABLET PO PRN (05:55)
[2018-06-11 07:28] LABS: Mean Corpuscular Volume 97.6 fL (83.0-100.0); Red Cell Distribution Width 11.1 % (11.5-14.5)
[2018-06-11 07:30] LABS: Basophils # 0.1 K/mcL (0.0-0.2); Basophils % 0.7 %; Eosinophils # 0.1 K/mcL (0.0-0.6); Eosinophils % 0.7 %; Hematocrit 41.2 % (37.5-50.1); Hemoglobin 14.1 g/dL (12.9-16.9); Immature Granulocytes % 0.4 % (0-4); Immature Platelets 14.9 % (1.1-6.1); Lymphocytes # 2.9 K/mcL (0.6-4.6); Lymphocytes % 29.8 %; Mean Corpuscular HGB Conc 34.2 g/dL (31.6-35.5); Mean Corpuscular Hemoglobin 33.4 pg (28.0-33.3); Mean Platelet Volume 13.4 fL (9.4-12.4); Monocytes % 9.8 %; Red Blood Count 4.22 M/mcL (4.19-5.50); Segmented Neutrophils % 58.6 %
[2018-06-11 07:45] LABS: Neutrophils # 5.7 K/mcL (1.6-8.9); Platelet Count 32 K/mcL (140-400)
[2018-06-11 07:50] LABS: Alanine Aminotransferase 40 Units/L (7-52); Albumin 3.7 g/dL (3.5-5.7); Albumin/Globulin Ratio 0.9 (1.1-2.2); Alkaline Phosphatase 82 Units/L (34-104); Aspartate Amino Transferase 68 Units/L (13-39); BUN/Creatinine Ratio 25 (6-26); Bilirubin,Total 1.8 mg/dL (0.3-1.0); Blood Urea Nitrogen 18 mg/dL (6-20); Calcium 9.4 mg/dL (8.6-10.3); Carbon Dioxide 29 mEq/L (23-29); Chloride 99 mEq/L (98-107); Globulin 4.1 g/dL (2.4-3.5); Glucose 109 mg/dL (70-105); Osmolality,Calculated 278 (280-300); Potassium 3.6 mEq/L (3.5-5.1); Sodium 133 mEq/L (136-145); Total Protein 7.8 g/dL (6.4-8.9); eGFR For Non-African Americans > 60 (> 60)
[2018-06-11 07:58] VITALS: BP 126/76
[2018-06-11] MEDS ORDERED: Thiamine (B-1) 100 MG TABLET PO SCH (09:00)
[2018-06-11] MEDS ORDERED: Folic Acid 1 MG TABLET PO SCH (09:00)
[2018-06-11] MEDS: 0.9 % Sodium Chloride 1,000 ML IVC SCH (09:19)
--- NOTE | 2018-06-11 11:07 | Discharge Summary ---
- NOTES TO OUTPATIENT PROVIDER Notes to Outpatient Provider: Follow up with PCP in 3-5 days. Follow-up with the Fouzia Oneil in 1-2 weeks. Please quit drinking alcohol. Please go for lab work in 3 days and follow up with PCP for test results Orders not resulted at time of discharge: Pending orders 06/10/18 11:23 Urine tox screen [Drug Screen, Urine] [UCHEM] Routine Date of Encounter: 06/11/18 Time of Encounter: 11:05 - Discharge Diagnosis (1) Chest pain Priority: Primary Status: Acute Qualifiers: Chest pain type: chest pain on breathing Qualified Code(s): R07.1 - Chest pain on breathing; R07.81 - Pleurodynia (2) Thrombocytopenia Priority: Secondary Status: Acute (3) Sinus bradycardia Priority: Secondary Status: Acute (4) Hematemesis Priority: Secondary Status: Acute Qualifiers: Nausea presence: unspecified Qualified Code(s): K92.0 - Hematemesis (5) Esophageal varices in alcoholic cirrhosis Priority: Secondary Status: Acute (6) Portal hypertensive gastropathy Priority: Secondary Status: Acute (7) Cirrhosis of liver Priority: Secondary Status: Acute Qualifiers: Hepatic cirrhosis type: alcoholic cirrhosis Ascites presence: without ascites Qualified Code(s): K70.30 - Alcoholic cirrhosis of liver without ascites (8) DVT prophylaxis Priority: Secondary Status: Acute (9) Alcohol dependence Priority: Secondary Status: Acute Qualifiers: Substance use status: in withdrawal Complication of substance-induced condition: with unspecified complication Qualified Code(s): F10.239 - Alcohol dependence with withdrawal, unspecified Hospital course: Mr. Sow is a 48 year old male with a past medical history of hepatitis C, hypertension, alcohol use, anxiety and thrombocytopenia who presented to the ED with a chief complaint of chest pain and hematemesis. He did have reproducible chest wall tenderness which is better now. He did have an episode of hemetemesis here. He went for EGD which showed non bleeding esophageal varices and portal hypertensive gastropathy. Started him on PPI b.i.d. and liquid carafate. Patient is tolerating liquid / soft diet well. His chest pain seems to be musculoskeletal related pain. His echocardiogram did not show any septal/wall motion abnormalities. Patient still have thrombocytopenia due to alcoholic cirrhosis of liver. I recommended the patient to have follow-up lab work CBC, CMP in 3 days. I also counseled the patient to quit drinking alcohol and smoking. - Time Spent with Patient Total time spent providing and/or coordinating discharge services: - Discharge Medications Prescriptions: Folic Acid 1 mg PO DAILY #30 tablet Omeprazole [PriLOSEC] 40 mg PO BID #60 capsule. Sucralfate [Carafate] 1 gm PO QIDAC #1200 ml Home Medications: Escitalopram [Lexapro] 5 mg PO DAILY 02/26/18 [History] Cyanocobalamin (Vitamin B-12) [Vitamin B12] 1,000 mcg PO DAILY 06/10/18 [History] Rifaximin [Xifaxan] 550 mg PO BID 06/10/18 [History] Thiamine HCl [Vitamin B-1] 100 mg PO DAILY 06/10/18 [History] Tizanidine HCl 2 mg PO DAILY 06/10/18 [History] Albuterol Sulfate [Proair Respiclick] 2 puff IH Q6H PRN #1 [email or web address] 06/11/18 [Rx] Budesonide [Pulmicort Flexhaler 90mcg] 90 mcg IH BID #1 [email or web address] 06/11/18 [Rx] Folic Acid 1 mg PO DAILY #30 tablet 06/11/18 [Rx] Omeprazole [PriLOSEC] 40 mg PO BID #60 capsule. 06/11/18 [Rx] Sucralfate [Carafate] 1 gm PO QIDAC #1200 ml 06/11/18 [Rx] Allergies/Adverse Reactions: Allergy/AdvReac Type Severity Reaction Status Date / Time No Known Allergies Allergy Verified 06/10/18 14:23 Date of admission: 06/09/18 19:55 Primary care physician: Darin Mendosa MD Consults: 06/10/18 04:33 Consult to Cardiology [CONS] Routine Comment: Consulting Provider: Cardiology Sharda Reason for Consult: Patient presents with chest pain and sinus bradycardia. Call Completed: No 06/10/18 11:31 Consult to Gastroenterology [CONS] Routine Consulting Provider: Gastroenterology Sharda Reason for Consult: hematemesis Time Notified: 11:31 Call Completed: Yes 06/10/18 14:43 Consult to Foster Care Case Manager [CONS] Routine Reason for SW Consult: Alcohol dependence - Constitutional Vitals: Temp Pulse Resp BP Pulse Ox 98.7 F 57 14 126/76 97 06/11/18 04:58 06/11/18 04:58 06/11/18 04:58 06/11/18 07:55 06/11/18 08:02 General appearance: Present: cooperative, A&O X 3, no acute distress, answers questions appropriately Exam: Gen: Alert, awake, Oriented to time,place and person Chest: Diminished breath sounds B/L, mild wheezing, No crackles, No rales Heart: S1S2+ RRR No murmurs Abd: Soft, NT, BS +, No organomegaly Ext: No edema, pulses are palpable, No calf tenderness Neuro : Benign findings Skin: No rash. - Patient Status Disposition: Home, Self-Care Condition: Good Overall status at discharge: patient is back to baseline - Ambulatory Orders Ambulatory Orders: Complete Blood Count [HEME] Time Frame: 3 Days, Facility: [facility], Location: Lab Comprehensive Metabolic Panel [CHEM] Time Frame: 3 Days, Facility: [facility], Location: Lab - Discharge Instructions Instructions: Hiatal Hernia (DC), Diet for Ulcers and Gastritis (GEN) Follow Up With: Darin Mendosa MD [Primary Care Provider] - 06/18/18 11:15 am Laura Oneil MD [Partnered Physician] - - Diet and Activity Activity: increase activity as tolerated Diet: low salt diet
[2018-06-11] MEDS: Ipratropium/Albuterol Neb 3 ML IH PRN (11:51)
== END 2018-06-11 12:00 | disposition home or self-care (01) ==
LOC: EMEROOARM 16:01 → 3BNU 16:01 → SUATTDRO 19:55 → 3BNU 20:34
PROVIDERS: ADMIT Internal Medicine; ATTEND Family Medicine

== ENCOUNTER 2021-01-30 19:22 | Observation (INO) ==
[2021-01-30 20:05] LABS: Bilirubin,Urine Negative (Negative); Blood,Urine Moderate (Negative); Clarity,Urine Clear (Clear); Color,Urine Light-Yellow (Yellow); Glucose,Urine (UA) Normal (Normal); Ketones,Urine Negative (Negative); Leukocyte Esterase,Urine Negative (Negative); Nitrite,Urine Negative (Negative); Protein,Urine Trace mg/dL (Neg-Trace); Specific Gravity,Urine 1.007 (1.010-1.025); Urobilinogen,Urine Normal (Normal); WBC,Urine 0-3 per hpf (0-3)
[2021-01-30 20:11] LABS: Hemoglobin 13.9 g/dL (12.9-16.9)
[2021-01-30 20:13] LABS: Amphetamine Screen,Urine Negative ng/mL (Cutoff=1000); Barbiturate Screen,Urine Negative ng/mL (Cutoff=200); Benzodiazepines Screen,Urine Negative ng/mL (Cutoff=200); Cannabinoid Screen,Urine Negative ng/mL (Cutoff = 50); Cocaine Screen,Urine Negative ng/mL (Cutoff= 300); Opiate Screen,Urine Positive ng/mL (Cutoff=300); Phencyclidine Screen,Urine Negative ng/mL (Cutoff=25)
[2021-01-30 20:14] LABS: Immature Granulocytes % 0.3 % (0-4); Mean Corpuscular HGB Conc 34.2 g/dL (31.6-35.5); Mean Corpuscular Volume 99.3 fL (83.0-100.0)
[2021-01-30 20:15] LABS: Basophils # 0.1 K/mcL (0.0-0.2); Basophils % 1.7 %; Eosinophils # 0.1 K/mcL (0.0-0.6); Eosinophils % 1.7 %; Hematocrit 40.6 % (37.5-50.1); Lymphocytes # 2.5 K/mcL (0.6-4.6); Lymphocytes % 35.7 %; Mean Platelet Volume 10.9 fL (9.4-12.4); Monocytes # 0.8 K/mcL (0.0-1.3); Monocytes % 11.9 %; Neutrophils # 3.4 K/mcL (1.6-8.9); Red Blood Count 4.09 M/mcL (4.19-5.50); Red Cell Distribution Width 11.8 % (11.5-14.5); Segmented Neutrophils % 48.7 %
[2021-01-30 20:16] LABS: Platelet Count 48 K/mcL (140-400)
[2021-01-30 20:23] LABS: Acetaminophen < 10 mcg/mL (10-20); BUN/Creatinine Ratio 12 (6-26); Blood Urea Nitrogen 9 mg/dL (6-20); Calcium 10.2 mg/dL (8.6-10.3); Carbon Dioxide 23 mEq/L (23-29); Chloride 104 mEq/L (98-107); Ethanol 350 mg/dL (Less than 10); Glucose 140 mg/dL (70-105); Osmolality,Calculated 287 (280-300); Potassium 3.9 mEq/L (3.5-5.1); Salicylate < 2.5 mg/dL (15.0-30.0); Sodium 138 mEq/L (136-145); eGFR For African Americans > 60 (> 60); eGFR For Non-African Americans > 60 (> 60)
[2021-01-30] MEDS ORDERED: *HR* LORazepam 2 MG/ML VIAL IVP PRN ×3 (23:37)
[2021-01-30] MEDS ORDERED: Naloxone 0.4 MG/ML INJ IVP PRN (23:57)
[2021-01-31] MEDS: 0.9 % Sodium Chloride 1,000 ML IVC SCH ×2 (01:03→11:13)
[2021-01-31] MEDS: Nicotine 14 MG PATCH.TD24 TD SCH (05:34)
[2021-01-31] MEDS: Famotidine 20 MG/2 ML VIAL IVP SCH ×2 (05:34→17:21)
[2021-01-31 06:02] LABS: Albumin 3.5 g/dL (3.5-5.7); Albumin/Globulin Ratio 0.9 (1.1-2.2); Bilirubin,Direct 0.6 mg/dL (0.0-0.2); Bilirubin,Indirect 1.1 mg/dL (0.0-1.0); Bilirubin,Total 1.7 mg/dL (0.3-1.0); Globulin 3.7 g/dL (2.4-3.5); Total Protein 7.2 g/dL (6.4-8.9)
[2021-01-31] MEDS ORDERED: *HR* LORazepam 2 MG/ML VIAL IVP ONE (06:27)
[2021-01-31] MEDS: Folic Acid 1 MG TABLET PO SCH (08:35)
[2021-01-31] MEDS: Vitamin B Complex/Vit C/Vit E 1 EACH TABLET PO SCH (08:35)
[2021-01-31] MEDS: Thiamine (B-1) 200 MG in 0.9 % Sodium Chloride 50 ML IVPB SCH (08:35)
[2021-01-31 11:13] LABS: Vitamin D 25 Hydroxy 47 ng/mL (30-80)
[2021-01-31 11:15] LABS: Folate 11.3 ng/mL (3.0-16.0)
[2021-01-31 11:22] LABS: Vitamin B12 > 1500 pg/mL (250-1100)
[2021-01-31 11:54] LABS: Hepatitis B Surface Antigen Nonreactive (Nonreactive)
[2021-01-31 12:24] LABS: Hepatitis B Core IgM Nonreactive (Nonreactive)
[2021-01-31 12:25] LABS: Hepatitis A Antibody IgM Nonreactive (Nonreactive)
[2021-01-31 14:05] LABS: Hepatitis C Virus Antibody Reactive (Nonreactive)
[2021-01-31] MEDS ORDERED: Ibuprofen 600 MG TABLET PO ONE (21:45)
[2021-02-01] MEDS: Nicotine 14 MG PATCH.TD24 TD SCH (00:17)
[2021-02-01 03:01] LABS: Hemoglobin 12.4 g/dL (12.9-16.9); Mean Corpuscular Volume 98.9 fL (83.0-100.0); Red Cell Distribution Width 11.7 % (11.5-14.5)
[2021-02-01 03:02] LABS: Hematocrit 36.3 % (37.5-50.1); Immature Platelets 8.1 % (1.1-6.1); Mean Corpuscular HGB Conc 34.2 g/dL (31.6-35.5); Mean Corpuscular Hemoglobin 33.8 pg (28.0-33.3); Mean Platelet Volume 11.6 fL (9.4-12.4); Red Blood Count 3.67 M/mcL (4.19-5.50); White Blood Count 5.3 K/mcL (4.3-11.1)
[2021-02-01 03:19] LABS: Alanine Aminotransferase 63 Units/L (7-52); Albumin 3.3 g/dL (3.5-5.7); Albumin/Globulin Ratio 0.8 (1.1-2.2); Alkaline Phosphatase 75 Units/L (34-104); Aspartate Amino Transferase 140 Units/L (13-39); BUN/Creatinine Ratio 13 (6-26); Bilirubin,Indirect 1.8 mg/dL (0.0-1.0); Bilirubin,Total 2.8 mg/dL (0.3-1.0); Blood Urea Nitrogen 10 mg/dL (6-20); Calcium 9.2 mg/dL (8.6-10.3); Carbon Dioxide 24 mEq/L (23-29); Chloride 107 mEq/L (98-107); Globulin 3.9 g/dL (2.4-3.5); Glucose 85 mg/dL (70-105); Osmolality,Calculated 284 (280-300); Potassium 3.8 mEq/L (3.5-5.1); Sodium 138 mEq/L (136-145); Total Protein 7.2 g/dL (6.4-8.9); eGFR For African Americans > 60 (> 60); eGFR For Non-African Americans > 60 (> 60)
[2021-02-01] MEDS: Famotidine 20 MG/2 ML VIAL IVP SCH (05:59)
[2021-02-01] MEDS ORDERED: lisinopriL 5 MG TABLET PO SCH (09:00)
[2021-02-01] MEDS: Folic Acid 1 MG TABLET PO SCH (09:23)
[2021-02-01] MEDS: Vitamin B Complex/Vit C/Vit E 1 EACH TABLET PO SCH (09:23)
[2021-02-01] MEDS: Thiamine (B-1) 200 MG in 0.9 % Sodium Chloride 50 ML IVPB SCH (09:29)
[2021-02-01 11:52] VITALS: BP 158/90; PULSE 75; TEMP 97.9; O2SAT 95
[2021-02-01 14:22] LABS: Adenovirus Not Detected (Not Detect); Bordetella Pertussis Not Detected (Not Detect); Chlamydophila pneumoniae Not Detected (Not Detect); Coronavirus 229E Not Detected (Not Detect); Coronavirus HKU1 Not Detected (Not Detect); Coronavirus NL63 Not Detected (Not Detect); Coronavirus OC43 Not Detected (Not Detect); Human Metapneumovirus Not Detected (Not Detect); Human Rhinovirus/Enterovirus Not Detected (Not Detect); Influenza A Subtype 2009 H1 Not Detected (Not Detect); Influenza B Not Detected (Not Detect); Mycoplasma pneumoniae Not Detected (Not Detect); Parainfluenza Virus 1 Not Detected (Not Detect); Parainfluenza Virus 2 Not Detected (Not Detect); Parainfluenza Virus 3 Not Detected (Not Detect); Parainfluenza Virus 4 Not Detected (Not Detect); Respiratory Syncytial Virus Not Detected (Not Detect); SARS-CoV-2 Not Detected (Not Detect)
== END 2021-02-01 17:55 | disposition home or self-care (01) ==
LOC: EMEROOARM 19:22 → 3ANU 19:22 → SUATTDRO 22:59 → 3ANU 01-31 00:06
PROVIDERS: ADMIT Internal Medicine; ATTEND Internal Medicine

== ENCOUNTER 2021-02-02 18:17 | Inpatient (IN) ==
[2021-02-01] MEDS: traZODone 50 MG TABLET PO PRN (21:56)
[2021-02-02] MEDS: Nicotine 14 MG PATCH.TD24 TD SCH ×2 (02:21→09:18)
[2021-02-02] MEDS: Thiamine (B-1) 100 MG TABLET PO SCH (09:17)
[2021-02-02] MEDS: Folic Acid 1 MG TABLET PO SCH (09:17)
[2021-02-02] MEDS: lisinopriL 5 MG TABLET PO SCH (09:17)
[2021-02-02] MEDS: Vitamin B Complex/Vit C/Vit E 1 EACH TABLET PO SCH (09:17)
[~2021-02-02 18:17] MED LIST: *HR* LORazepam 1 MG TABLET PO ONE; *HR* LORazepam 1 MG TABLET PO PRN; *HR* LORazepam 2 MG/ML VIAL IM PRN; Acetaminophen 325 MG TABLET PO PRN; Haloperidol Lactate 5 MG/ML VIAL IM PRN; Ibuprofen 400 MG TABLET PO PRN; MOM Conc 10 ML UD.LIQ PO PRN; Mag Hydrox/Al Hydrox/Simeth 30 ML UDC PO PRN; Patient Taking Own Medication 1 EACH PO SCH; Vitamin B Complex/Vit C/Vit E 1 EACH TABLET PO SCH; haloperidoL 5 MG TABLET PO PRN
[2021-02-02] MEDS ORDERED: *HR* LORazepam 1 MG TABLET PO ONE (22:58)
[2021-02-03] MEDS: traZODone 50 MG TABLET PO PRN (00:09)
[2021-02-03] MEDS ORDERED: *HR* LORazepam 1 MG TABLET PO ONE ×2 (00:14→08:10)
[2021-02-03] MEDS: Nicotine 14 MG PATCH.TD24 TD SCH (08:28)
[2021-02-03] MEDS: Vitamin B Complex/Vit C/Vit E 1 EACH TABLET PO SCH (08:30)
[2021-02-03] MEDS: Folic Acid 1 MG TABLET PO SCH (08:30)
[2021-02-03] MEDS: Thiamine (B-1) 100 MG TABLET PO SCH (08:30)
[2021-02-03] MEDS: lisinopriL 5 MG TABLET PO SCH (08:31)
[2021-02-03 09:50] VITALS: BP 111/72; PULSE 89; TEMP 98.2; O2SAT 100
[2021-02-03] MEDS ORDERED: *HR* LORazepam 1 MG TABLET PO PRN ×2 (09:56→09:57)
== END 2021-02-03 15:35 | disposition home or self-care (01) | DRG 754 ==
LOC: 1ANU
PROVIDERS: ADMIT Psychiatry & Neurology Psychiatry; ATTEND Psychiatry & Neurology Psychiatry

== ENCOUNTER 2022-02-10 09:32 | Inpatient (IN) ==
[2022-02-10 10:07] LABS: Mean Corpuscular HGB Conc 33.1 g/dL (31.6-35.5); Red Cell Distribution Width 11.6 % (11.5-14.5)
[2022-02-10 10:08] LABS: Hematocrit 35.6 % (37.5-50.1); Hemoglobin 11.8 g/dL (12.9-16.9); Mean Corpuscular Hemoglobin 33.4 pg (28.0-33.3); Mean Corpuscular Volume 100.8 fL (83.0-100.0); Mean Platelet Volume 10.6 fL (9.4-12.4); Platelet Count 158 K/mcL (140-400); Red Blood Count 3.53 M/mcL (4.19-5.50); White Blood Count 25.8 K/mcL (4.3-11.1)
[2022-02-10 10:10] LABS: Monocytes # 4.1 K/mcL (0.0-1.3)
[2022-02-10 10:24] LABS: Alanine Aminotransferase 41 Units/L (7-52); Albumin 3.5 g/dL (3.5-5.7); Albumin/Globulin Ratio 0.8 (1.1-2.2); Alkaline Phosphatase 91 Units/L (34-104); Aspartate Amino Transferase 76 Units/L (13-39); BUN/Creatinine Ratio 22 (6-26); Bilirubin,Direct 1.6 mg/dL (0.0-0.2); Bilirubin,Indirect 1.5 mg/dL (0.0-1.0); Bilirubin,Total 3.1 mg/dL (0.3-1.0); Blood Urea Nitrogen 36 mg/dL (6-20); Calcium 8.9 mg/dL (8.6-10.3); Carbon Dioxide 16 mEq/L (23-29); Chloride 96 mEq/L (98-107); Globulin 4.4 g/dL (2.4-3.5); Glucose 137 mg/dL (70-105); Osmolality,Calculated 266 (280-300); Potassium 4.8 mEq/L (3.5-5.1); Sodium 123 mEq/L (136-145); Total Protein 7.9 g/dL (6.4-8.9); Troponin I < 0.03 ng/mL (< 0.04)
[2022-02-10 10:28] LABS: Lymphocytes # 2.3 K/mcL (0.6-4.6); Neutrophils # 19.4 K/mcL (1.6-8.9)
[2022-02-10 10:31] LABS: Macrocytosis Present (Not Present); Platelet Estimate Normal (Normal)
[2022-02-10] MEDS ORDERED: Morphine Sulfate 2 MG/ML SYRINGE IVP ONE ×2 (10:39→15:51)
[2022-02-10] MEDS ORDERED: Ondansetron 4 MG/2 ML VIAL IVP ONE (10:39)
[2022-02-10] MEDS ORDERED: Iopamidol - 370 500 ML MLS IVP ONE (10:40)
[2022-02-10] MEDS ORDERED: 0.9 % Sodium Chloride 1,000 ML IVC ONE (10:41)
[2022-02-10] MEDS ORDERED: MetroNIDAZOLE 500 MG/100 ML 500 MG/100 ML BAG IVPB ONE (10:43)
[2022-02-10] MEDS ORDERED: Cefepime HCl 2,000 MG in 0.9 % Sodium Chloride 10 ML IVP ONE (10:43)
[2022-02-10 11:30] LABS: Lipase 141 Units/L (11-82)
[2022-02-10 11:32] LABS: Troponin I < 0.03 ng/mL (< 0.04)
[2022-02-10 11:33] LABS: INR 1.9; Prothrombin Time 20.6 Seconds (9.4-12.1)
[2022-02-10 13:27] LABS: Bilirubin,Urine Negative (Negative); Blood,Urine Large (Negative); Clarity,Urine Clear (Clear); Color,Urine Yellow (Yellow); Glucose,Urine (UA) Normal (Normal); Hyaline Casts,Urine Many per lpf (None Seen); Ketones,Urine Negative (Negative); Leukocyte Esterase,Urine Negative (Negative); Mucus,Urine Few per lpf (None-Few); Nitrite,Urine Negative (Negative); PH,Urine 5.5 pH Units (5.0-8.0); Protein,Urine 50 mg/dL (Neg-Trace); Specific Gravity,Urine > 1.030 (1.010-1.025); Squamous Epithelial Cell,Urine Few per hpf (None-Few); Urobilinogen,Urine Normal (Normal)
[2022-02-10] MEDS ORDERED: Ipratropium/Albuterol Neb 3 ML IH PRN (15:10)
[2022-02-10] MEDS ORDERED: Ondansetron 4 MG/2 ML VIAL IVP PRN (15:13)
[2022-02-10] MEDS ORDERED: Naloxone 0.4 MG/ML INJ IVP PRN (15:13)
[2022-02-10] MEDS: Piperacillin/Tazobactam 3.375 GM in 0.9 % Sodium Chloride Mini Bag 100 ML IVPB SCH (17:00)
[2022-02-10] MEDS ORDERED: *HR* LORazepam 2 MG/ML VIAL IVP PRN (20:29)
[2022-02-10] MEDS: *HR* LORazepam 2 MG/ML VIAL IVP PRN (21:34)
[2022-02-10] MEDS ORDERED: *HR* Heparin 5,000 UNIT/ML VIAL SQ SCH (22:00)
[2022-02-10] MEDS: Ringers Solution, Lactated 1,000 ML IVC SCH (22:32)
[2022-02-11] MEDS: Piperacillin/Tazobactam 3.375 GM in 0.9 % Sodium Chloride Mini Bag 100 ML IVPB SCH ×4 (00:23→23:31)
[2022-02-11] MEDS: *HR* OxyCODONE Immed Rel 5 MG TABLET PO PRN ×3 (00:24→13:49)
[2022-02-11 00:41] LABS: Hematocrit 33.1 % (37.5-50.1); Hemoglobin 11.2 g/dL (12.9-16.9); Mean Corpuscular HGB Conc 33.8 g/dL (31.6-35.5); Mean Corpuscular Hemoglobin 33.6 pg (28.0-33.3); Mean Corpuscular Volume 99.4 fL (83.0-100.0); Mean Platelet Volume 10.6 fL (9.4-12.4); Platelet Count 125 K/mcL (140-400); Red Blood Count 3.33 M/mcL (4.19-5.50); Red Cell Distribution Width 11.6 % (11.5-14.5); White Blood Count 18.8 K/mcL (4.3-11.1)
[2022-02-11 00:50] LABS: Magnesium 1.9 mg/dL (1.6-2.6); Potassium 5.2 mEq/L (3.5-5.1)
[2022-02-11] MEDS: Ringers Solution, Lactated 1,000 ML IVC SCH ×2 (01:23→09:37)
[2022-02-11 01:29] LABS: Lymphocytes # 0.8 K/mcL (0.6-4.6); Monocytes # 3.4 K/mcL (0.0-1.3); Neutrophils # 14.7 K/mcL (1.6-8.9); Platelet Estimate Normal (Normal)
[2022-02-11] MEDS: Pantoprazole 40 MG in 0.9 % Sodium Chloride Mini Bag 100 ML IVC SCH ×4 (02:23→18:45)
[2022-02-11] MEDS ORDERED: Calcium Gluconate 1gm/50mL 1 GM/50 ML BAG IVPB ONE (05:32)
[2022-02-11 12:48] LABS: Hematocrit 33.4 % (37.5-50.1); Hemoglobin 11.3 g/dL (12.9-16.9)
[2022-02-11] MEDS ORDERED: Albuterol 2.5 MG/3 ML NEBULIZER IH PRN (14:30)
[2022-02-11] MEDS ORDERED: Lidocaine -MPF 2% 5 ML VIAL ONE (14:43)
[2022-02-11] MEDS ORDERED: Ondansetron 4 MG/2 ML VIAL ONE (14:43)
[2022-02-11] MEDS ORDERED: *HR* Propofol 200 MG/20 ML VIAL IVP ONE (14:45)
[2022-02-11] MEDS ORDERED: *HR* FentaNYL (PF) 100 MCG/2 ML VIAL ONE (14:45)
[2022-02-11 17:51] LABS: Source of Body Fluid LEFT LOWER LOBE LUNG
[2022-02-11 22:43] LABS: Appearance of Body Fluid Cloudy (Clear); Volume of Body Fluid 20 mL
[2022-02-12] MEDS: Pantoprazole 40 MG in 0.9 % Sodium Chloride Mini Bag 100 ML IVC SCH ×6 (00:29→20:09)
[2022-02-12] MEDS: Ringers Solution, Lactated 1,000 ML IVC SCH ×3 (00:30→20:08)
[2022-02-12 05:16] LABS: Basophils % 0.2 %; Hematocrit 30.9 % (37.5-50.1); Hemoglobin 10.1 g/dL (12.9-16.9); Immature Granulocytes % 5.7 % (0-4); Lymphocytes # 0.3 K/mcL (0.6-4.6); Lymphocytes % 1.5 %; Mean Corpuscular HGB Conc 32.7 g/dL (31.6-35.5); Mean Corpuscular Hemoglobin 33.6 pg (28.0-33.3); Mean Corpuscular Volume 102.7 fL (83.0-100.0); Mean Platelet Volume 11.2 fL (9.4-12.4); Monocytes # 2.5 K/mcL (0.0-1.3); Monocytes % 12.3 %; Platelet Count 127 K/mcL (140-400); Red Blood Count 3.01 M/mcL (4.19-5.50); Red Cell Distribution Width 12.2 % (11.5-14.5); Segmented Neutrophils % 80.3 %; White Blood Count 20.1 K/mcL (4.3-11.1)
[2022-02-12 05:18] LABS: Neutrophils # 16.1 K/mcL (1.6-8.9)
[2022-02-12 05:27] LABS: Calcium 7.6 mg/dL (8.6-10.3); Potassium 5.2 mEq/L (3.5-5.1)
[2022-02-12 05:34] LABS: Platelet Estimate Slight Decrease (Normal)
[2022-02-12] MEDS: Piperacillin/Tazobactam 3.375 GM in 0.9 % Sodium Chloride Mini Bag 100 ML IVPB SCH ×2 (08:33→16:50)
[2022-02-12] MEDS: *HR* OxyCODONE Immed Rel 5 MG TABLET PO PRN ×2 (08:36→14:30)
[2022-02-13] MEDS: Piperacillin/Tazobactam 3.375 GM in 0.9 % Sodium Chloride Mini Bag 100 ML IVPB SCH ×3 (00:08→18:09)
[2022-02-13] MEDS: Pantoprazole 40 MG in 0.9 % Sodium Chloride Mini Bag 100 ML IVC SCH ×2 (00:08→05:16)
[2022-02-13] MEDS: *HR* LORazepam 2 MG/ML VIAL IVP PRN ×8 (00:42→22:34)
[2022-02-13] MEDS: Ringers Solution, Lactated 1,000 ML IVC SCH (02:07)
[2022-02-13 08:35] LABS: Red Cell Distribution Width 12.2 % (11.5-14.5)
[2022-02-13 08:36] LABS: Hematocrit 33.6 % (37.5-50.1); Hemoglobin 11.2 g/dL (12.9-16.9); Mean Corpuscular HGB Conc 33.3 g/dL (31.6-35.5); Mean Corpuscular Hemoglobin 32.7 pg (28.0-33.3); Mean Platelet Volume 10.7 fL (9.4-12.4); Nucleated Red Blood Cells 0.1 /100 WBC (0); Platelet Count 136 K/mcL (140-400); Red Blood Count 3.43 M/mcL (4.19-5.50); White Blood Count 25.3 K/mcL (4.3-11.1)
[2022-02-13 08:49] LABS: BUN/Creatinine Ratio 37 (6-26); Blood Urea Nitrogen 27 mg/dL (6-20); Calcium 8.2 mg/dL (8.6-10.3); Carbon Dioxide 22 mEq/L (23-29); Chloride 104 mEq/L (98-107); Glucose 120 mg/dL (70-105); Osmolality,Calculated 276 (280-300); Potassium 5.5 mEq/L (3.5-5.1); Sodium 130 mEq/L (136-145)
[2022-02-13 09:59] LABS: Monocytes # 3.5 K/mcL (0.0-1.3); Neutrophils # 21.8 K/mcL (1.6-8.9); Platelet Estimate Normal (Normal)
[2022-02-13] MEDS ORDERED: Ipratropium/Albuterol Neb 3 ML IH SCH (11:15)
[2022-02-13] MEDS ORDERED: Lidocaine -MPF 2% 5 ML VIAL ONE (11:39)
[2022-02-13] MEDS ORDERED: *HR* Midazolam HCl 2 MG/2 ML VIAL ONE (11:39)
[2022-02-13] MEDS ORDERED: *HR* Rocuronium Bromide 50 MG/5 ML VIAL ONE (11:39)
[2022-02-13] MEDS ORDERED: Ondansetron 4 MG/2 ML VIAL ONE (11:39)
[2022-02-13] MEDS ORDERED: *HR* FentaNYL (PF) 100 MCG/2 ML VIAL ONE ×2 (11:39→12:38)
[2022-02-13] MEDS ORDERED: *HR* Propofol 200 MG/20 ML VIAL IVP ONE (11:40)
[2022-02-13] MEDS ORDERED: Promethazine 6.25 MG in Water for inj. (sterile) 20 ML IVPB PRN ×2 (11:52→15:30)
[2022-02-13] MEDS ORDERED: Ondansetron 4 MG/2 ML VIAL IVP PRN ×2 (11:52→15:30)
[2022-02-13] MEDS ORDERED: Albuterol 2.5 MG/3 ML NEBULIZER IH PRN (11:52)
[2022-02-13] MEDS: *HR* HYDROmorphone PF 0.5 MG/0.5 ML SYRINGE IVP PRN ×2 (14:05→14:13)
[2022-02-13] MEDS ORDERED: Naloxone 0.4 MG/ML INJ IVP PRN (15:30)
[2022-02-13] MEDS: Ipratropium/Albuterol Neb 3 ML IH SCH ×2 (15:51→21:53)
[2022-02-13] MEDS ORDERED: Pantoprazole 40 MG VIAL IVP SCH (18:00)
[2022-02-13] MEDS: 0.9 % Sodium Chloride 1,000 ML IVC SCH (18:07)
[2022-02-13] MEDS: Pantoprazole 40 MG VIAL IVP SCH (18:10)
[2022-02-13] MEDS: *HR* OxyCODONE Immed Rel 5 MG TABLET PO PRN (22:39)
[2022-02-14] MEDS: Piperacillin/Tazobactam 3.375 GM in 0.9 % Sodium Chloride Mini Bag 100 ML IVPB SCH ×4 (01:11→23:29)
[2022-02-14] MEDS: 0.9 % Sodium Chloride 1,000 ML IVC SCH ×3 (01:17→19:15)
[2022-02-14] MEDS: *HR* LORazepam 2 MG/ML VIAL IVP PRN ×7 (02:14→23:30)
[2022-02-14 03:12] LABS: Basophils # 0.1 K/mcL (0.0-0.2); Basophils % 0.6 %; Hematocrit 35.5 % (37.5-50.1); Hemoglobin 11.6 g/dL (12.9-16.9); Immature Granulocytes % 1.6 % (0-4); Lymphocytes # 0.4 K/mcL (0.6-4.6); Lymphocytes % 2.7 %; Mean Corpuscular HGB Conc 32.7 g/dL (31.6-35.5); Mean Corpuscular Hemoglobin 32.8 pg (28.0-33.3); Mean Corpuscular Volume 100.3 fL (83.0-100.0); Mean Platelet Volume 10.6 fL (9.4-12.4); Monocytes # 2.4 K/mcL (0.0-1.3); Monocytes % 14.2 %; Neutrophils # 13.4 K/mcL (1.6-8.9); Platelet Count 136 K/mcL (140-400); Red Blood Count 3.54 M/mcL (4.19-5.50); Red Cell Distribution Width 12.4 % (11.5-14.5); Segmented Neutrophils % 80.9 %; White Blood Count 16.5 K/mcL (4.3-11.1)
[2022-02-14 03:34] LABS: BUN/Creatinine Ratio 33 (6-26); Blood Urea Nitrogen 23 mg/dL (6-20); Carbon Dioxide 24 mEq/L (23-29); Chloride 104 mEq/L (98-107); Glucose 151 mg/dL (70-105); Osmolality,Calculated 285 (280-300); Potassium 4.8 mEq/L (3.5-5.1); Sodium 134 mEq/L (136-145)
[2022-02-14] MEDS: Ipratropium/Albuterol Neb 3 ML IH SCH ×4 (03:41→22:39)
[2022-02-14] MEDS: Pantoprazole 40 MG VIAL IVP SCH (09:07)
[2022-02-14] MEDS: *HR* OxyCODONE Immed Rel 5 MG TABLET PO PRN ×2 (10:37→21:48)
[2022-02-14 15:29] LABS: Influenza A PCR Body Fluid NOT DETECTED; Influenza B PCR Body Fluid NOT DETECTED; RVP Body Fluid Source BRONCHIAL WASH
[2022-02-14 15:29] LABS: Influenza A PCR Body Fluid NOT DETECTED; Influenza B PCR Body Fluid NOT DETECTED; RVP Body Fluid Source BAL LLL
[2022-02-15] MEDS: *HR* LORazepam 2 MG/ML VIAL IVP PRN ×5 (01:34→19:57)
[2022-02-15 02:12] LABS: Herpes Simplex 1 Subtype PCR NOT DETECTED; Herpes Simplex Source BAL LLL
[2022-02-15 02:12] LABS: Herpes Simplex 1 Subtype PCR NOT DETECTED; Herpes Simplex Source BAL
[2022-02-15] MEDS: Ipratropium/Albuterol Neb 3 ML IH SCH ×4 (04:18→22:33)
[2022-02-15 05:00] LABS: Hematocrit 35.8 % (37.5-50.1); Hemoglobin 11.9 g/dL (12.9-16.9); Mean Corpuscular HGB Conc 33.2 g/dL (31.6-35.5); Mean Corpuscular Hemoglobin 32.7 pg (28.0-33.3); Mean Corpuscular Volume 98.4 fL (83.0-100.0); Mean Platelet Volume 10.6 fL (9.4-12.4); Platelet Count 166 K/mcL (140-400); Red Blood Count 3.64 M/mcL (4.19-5.50); Red Cell Distribution Width 12.4 % (11.5-14.5); White Blood Count 20.7 K/mcL (4.3-11.1)
[2022-02-15 05:14] LABS: % Iron Saturation 28 % (20-55); BUN/Creatinine Ratio 33 (6-26); Blood Urea Nitrogen 20 mg/dL (6-20); Calcium 8.3 mg/dL (8.6-10.3); Carbon Dioxide 25 mEq/L (23-29); Chloride 105 mEq/L (98-107); Glucose 119 mg/dL (70-105); Iron 59 mcg/dL (65-175); Magnesium 1.6 mg/dL (1.6-2.6); Osmolality,Calculated 286 (280-300); Potassium 4.3 mEq/L (3.5-5.1); Sodium 136 mEq/L (136-145); Transferrin 151 mg/dL (203-362)
[2022-02-15] MEDS: 0.9 % Sodium Chloride 1,000 ML IVC SCH ×2 (05:25→19:57)
[2022-02-15] MEDS: Pantoprazole 40 MG VIAL IVP SCH (09:20)
[2022-02-15] MEDS ORDERED: Acetaminophen IV 1,000 MG/100 ML BAG IVPB ONE (10:18)
[2022-02-15] MEDS ORDERED: Lactulose 200 GM, Sodium Chloride IRRigation 700 ML RC ONE (10:18)
[2022-02-15 12:10] LABS: RSV PCR Body Fluid NOT DETECTED
[2022-02-15 12:10] LABS: RSV PCR Body Fluid NOT DETECTED
[2022-02-15 12:13] LABS: Herpes Simplex 2 Subtype PCR NOT DETECTED
[2022-02-15 12:13] LABS: Herpes Simplex 2 Subtype PCR NOT DETECTED
[2022-02-15] MEDS: *HR* OxyCODONE Oral Soln 5 MG/5 ML UD.LIQ PO PRN ×2 (12:15→19:58)
[2022-02-15] MEDS: Piperacillin/Tazobactam 3.375 GM in 0.9 % Sodium Chloride Mini Bag 100 ML IVPB SCH ×2 (12:37→17:18)
[2022-02-15] MEDS ORDERED: *HR* LORazepam 2 MG/ML VIAL IVP ONE (12:54)
[2022-02-15 13:17] LABS: VBG HCO3 24 mEq/L (21-27); VBG PCO2 35 mmHg (41-51); VBG PH 7.44 pH Units (7.32-7.42); VBG PO2 110 mmHg (25-50)
[2022-02-15] MEDS ORDERED: Lactulose Oral Soln 20 GM/30 ML UDC PO ONE (15:35)
[2022-02-16] MEDS: Piperacillin/Tazobactam 3.375 GM in 0.9 % Sodium Chloride Mini Bag 100 ML IVPB SCH ×4 (00:02→23:51)
[2022-02-16] MEDS: *HR* LORazepam 2 MG/ML VIAL IVP PRN ×5 (00:09→08:39)
[2022-02-16] MEDS: *HR* OxyCODONE Oral Soln 5 MG/5 ML UD.LIQ PO PRN ×2 (02:23→08:39)
[2022-02-16] MEDS: Ipratropium/Albuterol Neb 3 ML IH SCH ×4 (04:31→22:48)
[2022-02-16] MEDS ORDERED: Haloperidol Lactate 5 MG/ML VIAL IVP ONE (05:05)
[2022-02-16] MEDS: 0.9 % Sodium Chloride 1,000 ML IVC SCH ×3 (05:59→18:56)
[2022-02-16 06:38] LABS: Alanine Aminotransferase 33 Units/L (7-52); Albumin 2.3 g/dL (3.5-5.7); Albumin/Globulin Ratio 0.7 (1.1-2.2); Alkaline Phosphatase 76 Units/L (34-104); Aspartate Amino Transferase 46 Units/L (13-39); BUN/Creatinine Ratio 26 (6-26); Bilirubin,Indirect 1.3 mg/dL (0.0-1.0); Bilirubin,Total 2.3 mg/dL (0.3-1.0); Blood Urea Nitrogen 19 mg/dL (6-20); Calcium 8.2 mg/dL (8.6-10.3); Carbon Dioxide 26 mEq/L (23-29); Chloride 104 mEq/L (98-107); Globulin 3.3 g/dL (2.4-3.5); Glucose 121 mg/dL (70-105); Magnesium 1.7 mg/dL (1.6-2.6); Osmolality,Calculated 284 (280-300); Phosphorous 3.5 mg/dL (2.7-4.5); Potassium 4.4 mEq/L (3.5-5.1); Sodium 135 mEq/L (136-145); Total Protein 5.6 g/dL (6.4-8.9)
[2022-02-16 06:59] LABS: VBG HCO3 24 mEq/L (21-27); VBG PCO2 39 mmHg (41-51); VBG PO2 67 mmHg (25-50)
[2022-02-16 07:01] LABS: Hematocrit 35.2 % (37.5-50.1); Hemoglobin 11.5 g/dL (12.9-16.9); Mean Corpuscular HGB Conc 32.7 g/dL (31.6-35.5); Mean Corpuscular Hemoglobin 32.6 pg (28.0-33.3); Mean Corpuscular Volume 99.7 fL (83.0-100.0); Mean Platelet Volume 10.4 fL (9.4-12.4); Platelet Count 182 K/mcL (140-400); Red Blood Count 3.53 M/mcL (4.19-5.50); Red Cell Distribution Width 12.6 % (11.5-14.5); White Blood Count 20.9 K/mcL (4.3-11.1)
[2022-02-16] MEDS: Pantoprazole 40 MG VIAL IVP SCH (07:48)
[2022-02-16 08:24] LABS: Lymphocytes # 1.7 K/mcL (0.6-4.6); Monocytes # 0.8 K/mcL (0.0-1.3); Neutrophils # 18.4 K/mcL (1.6-8.9)
[2022-02-16 08:25] LABS: Platelet Estimate Normal (Normal)
[2022-02-16] MEDS: Dexmedetomidine HCl 400 MCG/100 ML MLS IVC SCH (12:25)
[2022-02-17] MEDS: Dexmedetomidine HCl 400 MCG/100 ML MLS IVC SCH ×3 (00:15→08:03)
[2022-02-17] MEDS: Ipratropium/Albuterol Neb 3 ML IH SCH ×4 (04:52→21:29)
[2022-02-17] MEDS: Pantoprazole 40 MG VIAL IVP SCH (08:02)
[2022-02-17] MEDS: Piperacillin/Tazobactam 3.375 GM in 0.9 % Sodium Chloride Mini Bag 100 ML IVPB SCH ×2 (08:03→16:45)
[2022-02-17] MEDS: 0.9 % Sodium Chloride 1,000 ML IVC SCH ×3 (08:04→22:24)
[2022-02-17 08:05] LABS: Hematocrit 36.3 % (37.5-50.1); Hemoglobin 12.1 g/dL (12.9-16.9); Immature Granulocytes % 3.7 % (0-4); Mean Corpuscular HGB Conc 33.3 g/dL (31.6-35.5); Mean Corpuscular Hemoglobin 33.2 pg (28.0-33.3); Mean Corpuscular Volume 99.5 fL (83.0-100.0); Mean Platelet Volume 10.5 fL (9.4-12.4); Monocytes % 9.5 %; Platelet Count 147 K/mcL (140-400); Red Blood Count 3.65 M/mcL (4.19-5.50); Red Cell Distribution Width 12.3 % (11.5-14.5); Segmented Neutrophils % 80.1 %; White Blood Count 23.3 K/mcL (4.3-11.1)
[2022-02-17 08:06] LABS: Basophils # 0.1 K/mcL (0.0-0.2); Basophils % 0.3 %; Eosinophils # 0.1 K/mcL (0.0-0.6); Eosinophils % 0.4 %; Lymphocytes # 1.4 K/mcL (0.6-4.6); Monocytes # 2.2 K/mcL (0.0-1.3); Neutrophils # 18.7 K/mcL (1.6-8.9)
[2022-02-17 08:11] LABS: Alanine Aminotransferase 26 Units/L (7-52); Albumin 2.1 g/dL (3.5-5.7); Albumin/Globulin Ratio 0.7 (1.1-2.2); Alkaline Phosphatase 69 Units/L (34-104); Aspartate Amino Transferase 30 Units/L (13-39); BUN/Creatinine Ratio 31 (6-26); Bilirubin,Direct 1.2 mg/dL (0.0-0.2); Bilirubin,Indirect 1.3 mg/dL (0.0-1.0); Bilirubin,Total 2.5 mg/dL (0.3-1.0); Blood Urea Nitrogen 19 mg/dL (6-20); Carbon Dioxide 24 mEq/L (23-29); Chloride 106 mEq/L (98-107); Glucose 134 mg/dL (70-105); Magnesium 1.5 mg/dL (1.6-2.6); Osmolality,Calculated 278 (280-300); Phosphorous 3.8 mg/dL (2.7-4.5); Potassium 4.8 mEq/L (3.5-5.1); Sodium 132 mEq/L (136-145); Total Protein 5.1 g/dL (6.4-8.9)
[2022-02-17] MEDS ORDERED: *HR* Propofol 200 MG/20 ML VIAL IVP ONE (09:04)
[2022-02-17] MEDS ORDERED: *HR* FentaNYL (PF) 100 MCG/2 ML VIAL ONE (09:05)
[2022-02-17] MEDS ORDERED: *HR* Rocuronium Bromide 50 MG/5 ML VIAL ONE (09:05)
[2022-02-17] MEDS ORDERED: Lidocaine -MPF 2% 5 ML VIAL ONE (09:05)
[2022-02-17] MEDS ORDERED: Ondansetron 4 MG/2 ML VIAL ONE (09:05)
[2022-02-17] MEDS ORDERED: *HR* Succinylcholine 200 MG/10 ML VIAL IVP ONE (09:05)
[2022-02-17] MEDS ORDERED: *HR* Midazolam HCl 2 MG/2 ML VIAL ONE (09:05)
[2022-02-17] MEDS ORDERED: Lidocaine HCL 4 ML Topical Solution (Laryng-O-Jet Kit Sterile Pak) TP ONE (09:05)
[2022-02-17] MEDS ORDERED: Acetylcysteine 10% 10 ML VIAL MC ONE ×2 (10:15→12:33)
[2022-02-17] MEDS ORDERED: Dexmedetomidine HCl 400 MCG/100 ML MLS IVC SCH ×2 (10:24→12:33)
[2022-02-17] MEDS ORDERED: Albuterol 2.5 MG/3 ML NEBULIZER IH ONE (10:30)
[2022-02-17] MEDS ORDERED: Ondansetron 4 MG/2 ML VIAL IVP ONE (10:30)
[2022-02-17] MEDS ORDERED: 0.9 % Sodium Chloride 1,000 ML IVC SCH (10:30)
[2022-02-17] MEDS ORDERED: Lactulose 200 GM, Sodium Chloride IRRigation 700 ML RC ONE (10:39)
[2022-02-17] MEDS ORDERED: Ondansetron 4 MG/2 ML VIAL IVP PRN (12:33)
[2022-02-17] MEDS ORDERED: Naloxone 0.4 MG/ML INJ IVP PRN (12:33)
[2022-02-17 14:56] LABS: Lipase 231 Units/L (11-82)
[2022-02-18] MEDS: Piperacillin/Tazobactam 3.375 GM in 0.9 % Sodium Chloride Mini Bag 100 ML IVPB SCH ×3 (01:22→15:55)
[2022-02-18 01:50] LABS: VBG HCO3 22 mEq/L (21-27); VBG PCO2 36 mmHg (41-51); VBG PO2 88 mmHg (25-50)
[2022-02-18 01:53] LABS: Basophils # 0.1 K/mcL (0.0-0.2); Basophils % 0.3 %; Hematocrit 36.1 % (37.5-50.1); Hemoglobin 11.8 g/dL (12.9-16.9); Immature Granulocytes % 2.9 % (0-4); Lymphocytes # 0.6 K/mcL (0.6-4.6); Lymphocytes % 3.2 %; Mean Corpuscular HGB Conc 32.7 g/dL (31.6-35.5); Mean Corpuscular Hemoglobin 32.7 pg (28.0-33.3); Mean Platelet Volume 10.8 fL (9.4-12.4); Monocytes # 1.2 K/mcL (0.0-1.3); Monocytes % 7.1 %; Neutrophils # 14.7 K/mcL (1.6-8.9); Platelet Count 159 K/mcL (140-400); Red Blood Count 3.61 M/mcL (4.19-5.50); Red Cell Distribution Width 12.4 % (11.5-14.5); Segmented Neutrophils % 86.5 %
[2022-02-18 02:12] LABS: Alanine Aminotransferase 27 Units/L (7-52); Albumin 2.2 g/dL (3.5-5.7); Albumin/Globulin Ratio 0.7 (1.1-2.2); Alkaline Phosphatase 71 Units/L (34-104); Aspartate Amino Transferase 37 Units/L (13-39); BUN/Creatinine Ratio 40 (6-26); Bilirubin,Direct 1.1 mg/dL (0.0-0.2); Bilirubin,Indirect 1.1 mg/dL (0.0-1.0); Bilirubin,Total 2.2 mg/dL (0.3-1.0); Blood Urea Nitrogen 26 mg/dL (6-20); Calcium 8.3 mg/dL (8.6-10.3); Carbon Dioxide 22 mEq/L (23-29); Chloride 107 mEq/L (98-107); Globulin 3.2 g/dL (2.4-3.5); Glucose 159 mg/dL (70-105); Magnesium 1.8 mg/dL (1.6-2.6); Osmolality,Calculated 286 (280-300); Phosphorous 3.9 mg/dL (2.7-4.5); Potassium 4.7 mEq/L (3.5-5.1); Sodium 134 mEq/L (136-145); Total Protein 5.4 g/dL (6.4-8.9)
[2022-02-18] MEDS: Ipratropium/Albuterol Neb 3 ML IH SCH ×4 (04:53→22:43)
[2022-02-18] MEDS: 0.9 % Sodium Chloride 1,000 ML IVC SCH ×2 (06:17→15:54)
[2022-02-18] MEDS: Pantoprazole 40 MG VIAL IVP SCH (09:08)
[2022-02-19] MEDS: Piperacillin/Tazobactam 3.375 GM in 0.9 % Sodium Chloride Mini Bag 100 ML IVPB SCH ×3 (00:59→15:30)
[2022-02-19] MEDS: 0.9 % Sodium Chloride 1,000 ML IVC SCH ×2 (00:59→11:14)
[2022-02-19] MEDS: Ipratropium/Albuterol Neb 3 ML IH SCH ×4 (04:55→20:58)
[2022-02-19 06:11] LABS: Basophils % 0.2 %; Hematocrit 32.3 % (37.5-50.1); Hemoglobin 10.7 g/dL (12.9-16.9); Immature Granulocytes % 2.3 % (0-4); Lymphocytes % 4.2 %; Mean Corpuscular HGB Conc 33.1 g/dL (31.6-35.5); Mean Corpuscular Hemoglobin 33.2 pg (28.0-33.3); Mean Corpuscular Volume 100.3 fL (83.0-100.0); Mean Platelet Volume 9.9 fL (9.4-12.4); Monocytes # 2.2 K/mcL (0.0-1.3); Monocytes % 9.1 %; Neutrophils # 20.7 K/mcL (1.6-8.9); Platelet Count 208 K/mcL (140-400); Red Blood Count 3.22 M/mcL (4.19-5.50); Red Cell Distribution Width 12.8 % (11.5-14.5); Segmented Neutrophils % 84.2 %; White Blood Count 24.5 K/mcL (4.3-11.1)
[2022-02-19 06:30] LABS: BUN/Creatinine Ratio 38 (6-26); Blood Urea Nitrogen 23 mg/dL (6-20); Calcium 8.4 mg/dL (8.6-10.3); Carbon Dioxide 22 mEq/L (23-29); Chloride 106 mEq/L (98-107); Glucose 117 mg/dL (70-105); Osmolality,Calculated 277 (280-300); Potassium 4.4 mEq/L (3.5-5.1); Sodium 131 mEq/L (136-145)
[2022-02-19] MEDS: Pantoprazole 40 MG VIAL IVP SCH (07:34)
[2022-02-19] MEDS ORDERED: 0.9 % Sodium Chloride 1,000 ML IVC SCH (11:45)
[2022-02-20] MEDS: Piperacillin/Tazobactam 3.375 GM in 0.9 % Sodium Chloride Mini Bag 100 ML IVPB SCH ×2 (00:23→08:03)
[2022-02-20] MEDS: Ipratropium/Albuterol Neb 3 ML IH SCH ×4 (04:21→21:43)
[2022-02-20 07:18] LABS: Eosinophils % 0.2 %; Red Blood Count 3.28 M/mcL (4.19-5.50)
[2022-02-20 07:19] LABS: Basophils % 0.1 %; Eosinophils # 0.1 K/mcL (0.0-0.6); Hematocrit 32.9 % (37.5-50.1); Hemoglobin 10.8 g/dL (12.9-16.9); Immature Granulocytes % 1.4 % (0-4); Lymphocytes # 1.3 K/mcL (0.6-4.6); Lymphocytes % 4.8 %; Mean Corpuscular HGB Conc 32.8 g/dL (31.6-35.5); Mean Corpuscular Hemoglobin 32.9 pg (28.0-33.3); Mean Corpuscular Volume 100.3 fL (83.0-100.0); Mean Platelet Volume 10.1 fL (9.4-12.4); Monocytes % 11.2 %; Neutrophils # 22.1 K/mcL (1.6-8.9); Platelet Count 180 K/mcL (140-400); Red Cell Distribution Width 12.7 % (11.5-14.5); Segmented Neutrophils % 82.3 %; White Blood Count 26.9 K/mcL (4.3-11.1)
[2022-02-20 07:35] LABS: BUN/Creatinine Ratio 34 (6-26); Blood Urea Nitrogen 18 mg/dL (6-20); Calcium 8.8 mg/dL (8.6-10.3); Carbon Dioxide 23 mEq/L (23-29); Chloride 104 mEq/L (98-107); Glucose 105 mg/dL (70-105); Osmolality,Calculated 272 (280-300); Potassium 4.2 mEq/L (3.5-5.1); Sodium 130 mEq/L (136-145)
[2022-02-20 07:46] LABS: Platelet Estimate Normal (Normal)
[2022-02-20] MEDS: Pantoprazole 40 MG VIAL IVP SCH (08:04)
[2022-02-20] MEDS: levoFLOXacin 750 MG TABLET PO SCH (13:07)
[2022-02-20] MEDS: Gabapentin 300 MG CAPSULE PO SCH ×2 (13:56→20:06)
[2022-02-20] MEDS: Doxycycline 100 MG CAPSULE PO SCH ×2 (15:20→20:06)
[2022-02-20] MEDS: Famotidine 20 MG TABLET PO SCH (20:06)
[2022-02-21 03:13] LABS: Basophils # 0.1 K/mcL (0.0-0.2); Basophils % 0.2 %; Eosinophils # 0.1 K/mcL (0.0-0.6); Eosinophils % 0.4 %; Hematocrit 31.8 % (37.5-50.1); Hemoglobin 10.7 g/dL (12.9-16.9); Immature Granulocytes % 1.4 % (0-4); Lymphocytes # 1.4 K/mcL (0.6-4.6); Lymphocytes % 6.2 %; Mean Corpuscular HGB Conc 33.6 g/dL (31.6-35.5); Mean Corpuscular Hemoglobin 33.2 pg (28.0-33.3); Mean Corpuscular Volume 98.8 fL (83.0-100.0); Mean Platelet Volume 10.6 fL (9.4-12.4); Monocytes # 3.3 K/mcL (0.0-1.3); Monocytes % 14.5 %; Neutrophils # 17.6 K/mcL (1.6-8.9); Platelet Count 140 K/mcL (140-400); Red Blood Count 3.22 M/mcL (4.19-5.50); Red Cell Distribution Width 12.3 % (11.5-14.5); Segmented Neutrophils % 77.3 %; White Blood Count 22.8 K/mcL (4.3-11.1)
[2022-02-21 03:34] LABS: BUN/Creatinine Ratio 30 (6-26); Blood Urea Nitrogen 17 mg/dL (6-20); Calcium 8.8 mg/dL (8.6-10.3); Carbon Dioxide 22 mEq/L (23-29); Chloride 100 mEq/L (98-107); Glucose 98 mg/dL (70-105); Osmolality,Calculated 268 (280-300); Potassium 4.3 mEq/L (3.5-5.1); Sodium 128 mEq/L (136-145)
[2022-02-21] MEDS: Ipratropium/Albuterol Neb 3 ML IH SCH ×4 (03:55→21:14)
[2022-02-21] MEDS: levoFLOXacin 750 MG TABLET PO SCH (08:24)
[2022-02-21] MEDS: Gabapentin 300 MG CAPSULE PO SCH ×3 (08:24→20:42)
[2022-02-21] MEDS: Doxycycline 100 MG CAPSULE PO SCH ×2 (08:24→20:42)
[2022-02-21] MEDS: Famotidine 20 MG TABLET PO SCH ×2 (08:24→20:42)
[2022-02-21] MEDS ORDERED: polyethylene glycoL 3350 17 GM POWD.PACK PO ONE (13:43)
[2022-02-21] MEDS ORDERED: 0.9 % Sodium Chloride 500 ML IVC SCH (14:45)
[2022-02-22 03:39] LABS: Basophils % 0.2 %; Eosinophils # 0.1 K/mcL (0.0-0.6); Eosinophils % 0.3 %; Hematocrit 27.9 % (37.5-50.1); Hemoglobin 9.7 g/dL (12.9-16.9); Lymphocytes # 1.3 K/mcL (0.6-4.6); Lymphocytes % 6.2 %; Mean Corpuscular HGB Conc 34.8 g/dL (31.6-35.5); Mean Corpuscular Hemoglobin 33.8 pg (28.0-33.3); Mean Corpuscular Volume 97.2 fL (83.0-100.0); Mean Platelet Volume 10.5 fL (9.4-12.4); Monocytes # 3.3 K/mcL (0.0-1.3); Monocytes % 15.5 %; Neutrophils # 16.3 K/mcL (1.6-8.9); Platelet Count 136 K/mcL (140-400); Red Blood Count 2.87 M/mcL (4.19-5.50); Red Cell Distribution Width 12.6 % (11.5-14.5); Segmented Neutrophils % 75.8 %; White Blood Count 21.5 K/mcL (4.3-11.1)
[2022-02-22 04:00] LABS: BUN/Creatinine Ratio 27 (6-26); Blood Urea Nitrogen 16 mg/dL (6-20); Calcium 8.8 mg/dL (8.6-10.3); Carbon Dioxide 23 mEq/L (23-29); Chloride 103 mEq/L (98-107); Glucose 98 mg/dL (70-105); Osmolality,Calculated 269 (280-300); Potassium 4.6 mEq/L (3.5-5.1); Sodium 129 mEq/L (136-145)
[2022-02-22] MEDS: Ipratropium/Albuterol Neb 3 ML IH SCH ×3 (04:44→16:09)
[2022-02-22 07:57] VITALS: BP 124/75; PULSE 93; TEMP 98.4
[2022-02-22] MEDS: Doxycycline 100 MG CAPSULE PO SCH (08:18)
[2022-02-22] MEDS: Gabapentin 300 MG CAPSULE PO SCH (08:18)
[2022-02-22] MEDS: Famotidine 20 MG TABLET PO SCH (08:18)
[2022-02-22] MEDS: levoFLOXacin 750 MG TABLET PO SCH (08:18)
[2022-02-22] MEDS ORDERED: Milk and Molasses Enema 200 ML RC ONE (09:51)
[2022-02-22] MEDS ORDERED: Bisacodyl 10 MG RECTAL SUPPOSITORY RC PRN (09:52)
[2022-02-22] MEDS ORDERED: *HR* HYDROcodone/Acet 5/325 mg TABLET PO PRN (09:53)
[2022-02-22] MEDS ORDERED: Sennosides/Docusate Sodium TABLET PO SCH (10:00)
[2022-02-22] MEDS ORDERED: Flu Vac QV 22-23 (6MOS UP)/PF 0.5 ML SYRINGE IM ONE (13:45)
[2022-02-22 18:07] VITALS: O2SAT 96
== END 2022-02-22 16:47 | disposition home health service (06) | DRG 710 ==
LOC: EMEROOARM 09:32 → 2ANU 09:32 → SUATTDRO 17:35 → 2ANU 18:21 → 2NNU 02-13 13:24
PROVIDERS: ADMIT Student in an Organized Health Care Education/Training Program; ATTEND Family Medicine
PROC: ENDOBBX (2022-02-11 14:20)